=== PATIENT | female | born 1955 | race Caucasian/White ===

== ENCOUNTER 2023-07-02 19:55 | Emergency (ER) | payer OTHER ==
--- OUTSIDE RECORDS SUMMARY | 2023-07-02 19:59 | XMS REPORT | Continuity of Care Document ---
Author Name Unknown Address [address] [place] [address] [facility] Address [address] [place] [address] Care Team Providers Care Systems Software Manager Name Role Phone Pcp, Patient Does Not Have A Primary Care Physic pina JASPREET BENSON Attending Clinician Jaspreet La MD Attending Clinician [phone] CJ ALDANA Attending Clinician Unavailable Cj Ko Attending Clinician [phone] Doctor Unassigned, [place] Attending Clinician U navailable Only, [facility] Test Attending Clinician Unavailable Pob, [facility] Main Attending Clinician Gale Modi PT Attending Clinician Un available Park BRAND, Erica K.HJohn Attending Clinician [phone] ERICA NICKHJohn Attending Clinician UnavailJASPREET Melchor Admitting Clinician Jaspreet La MD Admitting Clinician [phone] Payers Payer Name Policy Type Policy Number Effective Date Expirati on Date Source GVISP 1 [id number] 2020 00:00:00 [employer] [facility] [id number] 2020 00:00:00 MEDICARE PART A \\T\\ B [id number] 2020 00:00:00 Problems Condition Name Condition Details Condition Category Status Onset Date Resolution Date Last Treatment Date Treating Clinician Comments Source Primary osteoarthr itis of right knee Primary osteoarthr itis of right knee Disease Active 11-01 00:00: 00 Overview: Formattin g of this note might be different from the original. Added automatic ally from request for surgery [id number] [facility] No known active problems No known active problems Disease [facility] Allergies, Adverse Reactions, Alerts Allergy Name Allergy Type Status Severity Reaction(s) Onset Date Inactive Date Treating Clinician Comments Source NO KNOWN ALLERGIE S Drug Class Active [facility] Social History Social Habit Start Date Stop Date Quantity Comments Source History SDOH Alcohol Std Drinks [facility] History SDOH Alcohol Binge [facility] Exposure to SARS-CoV-2 (event) Not sure [facility] Alcohol intake 2020-12-24 00:00:00 2020-12-24 00:00:00 Current drinker of alcohol (finding) [facility] Cigarettes smoked current (pack per day) - Reported 2020-09-27 00:00:00 2020-09-27 00:00:00 [facility] Tobacco use and exposure 2020-09-27 00:00:00 2020-09-27 00:00:00 Current user [facility] Alcohol Comment 2020-09-27 00:00:00 2020-09-27 00:00:00 occacional [facility] History SDOH Alcohol Frequency 2020-09-02 00:00:00 2020-09-02 00:00:00 1 [facility] Sex Assigned At 1955 00:00:00 1955 00:00:00 [facility] Smoking Status Start Date Stop Date Source Current every day smoker 2020-09-27 00:00:00 [facility] Never smoker [facility] Medications Ordered Medication Name Filled Medication Name Start Date Stop Date Current Medication? Ordering Clinician Indication Dosage Frequency Signature (SIG) Comments Components Source acetaminoph en-codeine (TYLENOL-CO DEINE #3) 300-30 mg tablet 11-19 00:00: 00 Yes 4647 2{tbl} Take 2 tablets by mouth every 4 (four) hours as needed for Pain (scale 4-6) or Pain (scale 7-10). Indication s: acute pain [facility] acetaminoph en-codeine (TYLENOL-CO DEINE #3) 300-30 mg tablet 11-19 00:00: 00 Yes 4647 2{tbl} Take 2 tablets by mouth every 4 (four) hours as needed for Pain (scale 4-6) or Pain (scale 7-10). Indication s: acute pain [facility] acetaminoph en-codeine (TYLENOL-CO DEINE #3) 300-30 mg tablet 11-19 00:00: 00 Yes 4647 2{tbl} Take 2 tablets by mouth every 4 (four) hours as needed for Pain (scale 4-6) or Pain (scale 7-10). Indication s: acute pain [facility] acetaminoph en-codeine (TYLENOL-CO DEINE #3) 300-30 mg tablet 11-19 00:00: 00 Yes 4647 2{tbl} Take 2 tablets by mouth every 4 (four) hours as needed for Pain (scale 4-6) or Pain (scale 7-10). Indication s: acute pain [facility] acetaminoph en-codeine (TYLENOL-CO DEINE #3) 300-30 mg tablet 11-19 00:00: 00 Yes 4647 2{tbl} Take 2 tablets by mouth every 4 (four) hours as needed for Pain (scale 4-6) or Pain (scale 7-10). Indication s: acute pain [facility] acetaminoph en-codeine (TYLENOL-CO DEINE #3) 300-30 mg tablet 11-19 00:00: 00 Yes 4647 2{tbl} Take 2 tablets by mouth every 4 (four) hours as needed for Pain (scale 4-6) or Pain (scale 7-10). Indication s: acute pain [facility] acetaminoph en-codeine (TYLENOL-CO DEINE #3) 300-30 mg tablet 11-19 00:00: 00 Yes 4647 2{tbl} Take 2 tablets by mouth every 4 (four) hours as needed for Pain (scale 4-6) or Pain (scale 7-10). Indication s: acute pain [facility] acetaminoph en-codeine (TYLENOL-CO DEINE #3) 300-30 mg tablet 11-19 00:00: 00 Yes 4647 2{tbl} Take 2 tablets by mouth every 4 (four) hours as needed for Pain (scale 4-6) or Pain (scale 7-10). Indication s: acute pain [facility] aspirin 81 mg chewable tablet 0 11-10 01:07: 32 Yes 81mg Take 81 mg by mouth daily. [facility] aspirin 81 mg chewable tablet 0 11-10 01:07: 32 Yes 81mg Take 81 mg by mouth daily. [facility] aspirin 81 mg chewable tablet 11-10 01:07: 32 Yes 81mg Take 81 mg by mouth daily. [facility] aspirin 81 mg chewable tablet 0 11-10 01:07: 32 Yes 81mg Take 81 mg by mouth daily. [facility] aspirin 81 mg chewable tablet 11-10 01:07: 32 Yes 81mg Take 81 mg by mouth daily. [facility] aspirin 81 mg chewable tablet 0 11-10 01:07: 32 Yes 81mg Take 81 mg by mouth daily. [facility] aspirin 81 mg chewable tablet 11-10 01:07: 32 Yes 81mg Take 81 mg by mouth daily. [facility] aspirin 81 mg chewable tablet 0 11-10 01:07: 32 Yes 81mg Take 81 mg by mouth daily. [facility] aspirin 81 mg chewable tablet 0 11-10 01:07: 32 Yes 81mg Take 81 mg by mouth daily. [facility] aspirin 81 mg chewable tablet 0 11-10 01:07: 32 Yes 81mg Take 81 mg by mouth daily. [facility] aspirin 81 mg chewable tablet 0 11-10 01:07: 32 Yes 81mg Take 81 mg by mouth daily. [facility] aspirin 81 mg chewable tablet 0 11-09 20:07: 32 Yes 81mg Take 81 mg by mouth daily. [facility] aspirin 81 mg chewable tablet 11-09 20:07: 32 Yes 81mg Take 81 mg by mouth daily. [facility] aspirin 81 mg chewable tablet 11-09 20:07: 32 Yes 81mg Take 81 mg by mouth daily. [facility] HYDROcodone -acetaminop hen (NORCO 5) 5-325 mg tablet 1 tablet 11-09 15:04: 04 Yes 1{tbl} 1 tablet, Oral, Q6HPRN, Starting Sun11/09/20 at 1004, Until Discontinu ed, Routine, Pain (scale 7-10), breakthrou gh pain [facility] HYDROcodone -acetaminop hen (NORCO 5) 5-325 mg tablet 1 tablet 11-09 15:04: 04 Yes 1{tbl} 1 tablet, Oral, Q6HPRN, Starting Sun11/09/20 at 1004, Until Discontinu ed, Routine, Pain (scale 7-10), breakthrou gh pain [facility] enoxaparin (LOVENOX) injection 30 mg 11-09 15:00: 00 12-07 12:59 :00 No 30mg 30 mg, Subcutaneo us, Q12H, 56 doses, First dose on Sun11/09/20 at 1000, Last dose on Sun12/06/20 at 1999, Routine [facility] enoxaparin (LOVENOX) injection 30 mg 11-09 15:00: 00 12-07 12:59 :00 No 30mg 30 mg, Subcutaneo us, Q12H, 56 doses, First dose on Sun11/09/20 at 1000, Last dose on Sun12/06/20 at 1999, Routine [facility] ondansetron (ZOFRAN (PF)) injection 4 mg 11-09 02:45: 00 11-09 02:22 :00 No 4mg 4 mg, Slow IV Push, ONCE, 1 dose, Sun11/08/20 at 2145, Routine [facility] ondansetron (ZOFRAN (PF)) injection 4 mg 11-09 02:45: 00 11-09 02:22 :00 No 4mg 4 mg, Slow IV Push, ONCE, 1 dose, Sun11/08/20 at 2145, Routine [facility] docusate (COLACE) capsule 100 mg 11-09 01:00: 00 Yes 100mg 100 mg, Oral, Q12H, First dose on Sun11/08/20 at 1999, Until Discontinu ed, Routine [facility] docusate (COLACE) capsule 100 mg 11-09 01:00: 00 Yes 100mg 100 mg, Oral, Q12H, First dose on Sun11/08/20 at 1999, Until Discontinu ed, Routine [facility] ceFAZolin in dextrose (iso-os) (ANCEF) 2 gram/100 mL Piggyback 2 g 11-09 00:15: 00 11-09 09:03 :00 No 2000mg 2 g (2,000 mg), IV Piggyback, Q8H ABX, 2 doses, First dose on Sun11/08/20 at 191, Last dose on Sun11/09/20 at 031, 100 mL
Reas on for Anti-Infec tive: Surgical Prophylaxi s
Surgi perla Prophylaxi s: Orthopaedi c
Durat ion of therapy: within 24 hours of surgery [facility] ceFAZolin in dextrose (iso-os) (ANCEF) 2 gram/100 mL Piggyback 2 g 11-09 00:15: 00 11-09 09:03 :00 No 2000mg 2 g (2,000 mg), IV Piggyback, Q8H ABX, 2 doses, First dose on Sun11/08/20 at 1915, Last dose on Sun11/09/20 at 0315, 100 mL
Reas on for Anti-Infec tive: Surgical Prophylaxi s
Surgi perla Prophylaxi s: Orthopaedi c
Durat ion of therapy: within 24 hours of surgery [facility] rivaroxaban (XARELTO) tablet 0 8-03 00:00: 00 Yes 1481 Take 10 mg po qd x 10 days Indication s: deep vein thrombosis prevention in knee replacemen t [facility] rivaroxaban (XARELTO) tablet 8-03 00:00: 00 Yes 1481 Take 10 mg po qd x 10 days Indication s: deep vein thrombosis prevention in knee replacemen t [facility] rivaroxaban (XARELTO) tablet 8-03 00:00: 00 Yes 1481 Take 10 mg po qd x 10 days Indication s: deep vein thrombosis prevention in knee replacemen t [facility] rivaroxaban (XARELTO) tablet 8-03 00:00: 00 Yes 1481 Take 10 mg po qd x 10 days Indication s: deep vein thrombosis prevention in knee replacemen t [facility] rivaroxaban (XARELTO) tablet 8-03 00:00: 00 Yes 1481 Take 10 mg po qd x 10 days Indication s: deep vein thrombosis prevention in knee replacemen t [facility] rivaroxaban (XARELTO) tablet 8-03 00:00: 00 Yes 1481 Take 10 mg po qd x 10 days Indication s: deep vein thrombosis prevention in knee replacemen t [facility] rivaroxaban (XARELTO) tablet 0 8-03 00:00: 00 Yes 1481 Take 10 mg po qd x 10 days Indication s: deep vein thrombosis prevention in knee replacemen t [facility] rivaroxaban (XARELTO) tablet 8-03 00:00: 00 Yes 1481 Take 10 mg po qd x 10 days Indication s: deep vein thrombosis prevention in knee replacemen t [facility] rivaroxaban (XARELTO) tablet 8-03 00:00: 00 Yes 1481 Take 10 mg po qd x 10 days Indication s: deep vein thrombosis prevention in knee replacemen t [facility] rivaroxaban (XARELTO) tablet 8-03 00:00: 00 Yes 1481 Take 10 mg po qd x 10 days Indication s: deep vein thrombosis prevention in knee replacemen t [facility] rivaroxaban (XARELTO) tablet 8 00:00: 00 Yes 1481 Take 10 mg po qd x 10 days Indication s: deep vein thrombosis prevention in knee replacemen t [facility] rivaroxaban (XARELTO) tablet 8 00:00: 00 Yes 1481 Take 10 mg po qd x 10 days Indication s: deep vein thrombosis prevention in knee replacemen t [facility] rivaroxaban (XARELTO) tablet 8 00:00: 00 Yes 1481 Take 10 mg po qd x 10 days Indication s: deep vein thrombosis prevention in knee replacemen t [facility] rivaroxaban (XARELTO) tablet 8 00:00: 00 Yes 1481 Take 10 mg po qd x 10 days Indication s: deep vein thrombosis prevention in knee replacemen t [facility] HYDROcodone -acetaminop hen 5-325 mg tablet 11-09 00:00: 00 11-17 04:59 :00 No 4647 1{tbl} Take 1 tablet by mouth every 6 (six) hours as needed for Pain (scale 7-10) (breakthro ugh pain) for up to 7 days. Indication s: acute pain [facility] HYDROcodone -acetaminop hen 5-325 mg tablet 11-09 00:00: 00 11-17 04:59 :00 No 4647 1{tbl} Take 1 tablet by mouth every 6 (six) hours as needed for Pain (scale 7-10) (breakthro ugh pain) for up to 7 days. Indication s: acute pain [facility] HYDROcodone -acetaminop hen 5-325 mg tablet 11-09 00:00: 00 11-17 04:59 :00 No 4647 1{tbl} Take 1 tablet by mouth every 6 (six) hours as needed for Pain (scale 7-10) (breakthro ugh pain) for up to 7 days. Indication s: acute pain [facility] HYDROcodone -acetaminop hen 5-325 mg tablet 11-09 00:00: 00 11-17 04:59 :00 No 4647 1{tbl} Take 1 tablet by mouth every 6 (six) hours as needed for Pain (scale 7-10) (breakthro ugh pain) for up to 7 days. Indication s: acute pain [facility] aspirin 81 mg chewable tablet 11-08 23:29: 04 Yes 81mg Take 81 mg by mouth daily. [facility] morpHINE 30 mg/30 mL (fixed dose) [employer] TRA[employer] injection 11-08 20:44: 45 Yes [facility] morpHINE 30 mg/30 mL (fixed dose) [employer] TRA[employer] injection 11-08 20:44: 45 Yes [facility] naloxone (NARCAN) injection 0.1 mg 11-08 19:44: 41 Yes .1mg 0.1 mg, Slow IV Push, SEE-INSTRU CTIONS, Starting Sun11/08/20 at 1444, Until Discontinu ed, Routine [facility] naloxone (NARCAN) injection 0.1 mg 11-08 19:44: 41 Yes .1mg 0.1 mg, Slow IV Push, SEE-INSTRU CTIONS, Starting Sun11/08/20 at 1444, Until Discontinu ed, Routine [facility] lactated ringers IV infusion 1,000 mL 11-08 18:30: 00 Yes 1000mL at 75 mL/hr, 1,000 mL, IV Infusion, CONTINUOUS , Starting Sun11/08/20 at 1330, Until Discontinu ed, Routine, PACU [facility] lactated ringers IV infusion 1,000 mL 11-08 18:30: 00 Yes 1000mL at 75 mL/hr, 1,000 mL, IV Infusion, CONTINUOUS , Starting Sun11/08/20 at 1330, Until Discontinu ed, Routine, PACU [facility] FENTanyl PF (SUBLIMAZE (PF)) injection 25 mcg 11-08 18:25: 16 11-08 18:48 :00 No 25ug 25 mcg, Slow IV Push, Q5MIN PRN, 4 doses, Starting Sun11/08/20 at 1325, Until Discontinu ed, Routine, Pain (scale 4-6), PACU [facility] FENTanyl PF (SUBLIMAZE (PF)) injection 25 mcg 11-08 18:25: 16 11-08 18:48 :00 No 25ug 25 mcg, Slow IV Push, Q5MIN PRN, 4 doses, Starting Sun11/08/20 at 1325, Until Discontinu ed, Routine, Pain (scale 4-6), PACU [facility] sodium chloride 0.9 % irrigation solution 11-08 16:14: 00 11-08 21:24 :10 No PRN, Starting Sun11/08/20 at 1114, Until Sun11/08/20 at 1624, Intra-op [facility] oxyCODONE-a cetaminophe n (PERCOCET) 5-325 mg per tablet 2 tablet 11-08 13:45: 00 11-08 13:52 :00 No 2{tbl} 2 tablet, Oral, ONCE, 1 dose, Sun11/08/20 at 0845, Routine, DSU Pre-op [facility] gabapentin (NEURONTIN) capsule 300 mg 11-08 13:45: 00 11-08 13:52 :00 No 300mg 300 mg, Oral, ONCE, 1 dose, Sun11/08/20 at 0845, Routine, DSU Pre-op [facility] celecoxib (CELEBREX) capsule 400 mg 11-08 13:45: 00 11-08 13:53 :00 No 400mg 400 mg, Oral, ONCE, 1 dose, Sun11/08/20 at 0845, Routine, DSU Pre-op [facility] lactated ringers IV infusion 1,000 mL 11-08 13:45: 00 11-08 13:53 :00 No 1000mL at 42 mL/hr, 1,000 mL, IV Infusion, ONCE, 1 dose, Sun11/08/20 at 0845, Routine, DSU Pre-op [facility] oxyCODONE-a cetaminophe n (PERCOCET) 5-325 mg per tablet 2 tablet 11-08 13:45: 00 11-08 13:52 :00 No 2{tbl} 2 tablet, Oral, ONCE, 1 dose, Sun11/08/20 at 0845, Routine, DSU Pre-op [facility] gabapentin (NEURONTIN) capsule 300 mg 11-08 13:45: 00 11-08 13:52 :00 No 300mg 300 mg, Oral, ONCE, 1 dose, Sun11/08/20 at 0845, Routine, DSU Pre-op [facility] celecoxib (CELEBREX) capsule 400 mg 11-08 13:45: 00 11-08 13:53 :00 No 400mg 400 mg, Oral, ONCE, 1 dose, Sun11/08/20 at 0845, Routine, DSU Pre-op [facility] lactated ringers IV infusion 1,000 mL 11-08 13:45: 00 11-08 13:53 :00 No 1000mL at 42 mL/hr, 1,000 mL, IV Infusion, ONCE, 1 dose, Sun11/08/20 at 0845, Routine, DSU Pre-op [facility] aspirin 81 mg chewable tablet 11-04 17:24: 33 Yes 81mg Take 81 mg by mouth daily. [facility] aspirin 81 mg chewable tablet 11-04 17:24: 33 Yes 81mg Take 81 mg by mouth daily. [facility] aspirin 81 mg chewable tablet 11-04 17:24: 33 Yes 81mg Take 81 mg by mouth daily. [facility] aspirin 81 mg chewable tablet 11-04 17:24: 33 Yes 81mg Take 81 mg by mouth daily. [facility] aspirin 81 mg chewable tablet 11-04 17:24: 33 Yes 81mg Take 81 mg by mouth daily. [facility] No known medications No [facility] No known medications No [facility] No known medications No [facility] No known medications No Un v[facility] No known medications No Un [facility] No known medications No [facility] No known medications No [facility] No known medications No [facility] No known medications No Un [facility] No known medications No [facility] No known medications No [facility] No known medications No Un v[facility] No known medications No Un v[facility] Vital Signs Vital Name Observation Time Observation Value Comments S ource Systolic blood pressure 2020-12-24 15:02:00 141 mm[Hg] [facility] Diastolic blood pressure 2020-12-24 15:02:00 89 mm[Hg] [facility] Heart rate 2020-12-24 15:02:00 85 /min [facility] Body height 2020-12-24 15:02:00 170.2 cm [facility] Body weight 2020-12-24 15:02:00 102.059 kg [facility] BMI 2020-12-24 15:02:00 35.24 kg/m2 [facility] Systolic blood pressure 2020-11-19 15:47:00 136 mm[Hg] [facility] Diastolic blood pressure 2020-11-19 15:47:00 77 mm[Hg] [facility] Heart rate 2020-11-19 15:47:00 96 /min [facility] Respiratory rate 2020-11-19 15:47:00 18 /min [facility] Body height 2020-11-19 15:47:00 170.2 cm [facility] Body weight 2020-11-19 15:47:00 102.059 kg [facility] BMI 2020-11-19 15:47:00 35.24 kg/m2 [facility] Systolic blood pressure 2020-11-09 20:15:00 120 mm[Hg] [facility] Diastolic blood pressure 2020-11-09 20:15:00 74 mm[Hg] [facility] Heart rate 2020-11-09 20:15:00 75 /min [facility] Body temperature 2020-11-09 20:15:00 36.56 Yu [facility] Respiratory rate 2020-11-09 20:15:00 16 /min [facility] Oxygen saturation in Arterial blood by Pulse oximetry 2020-11-09 20:15:00 91 /min [facility] Body weight 2020-11-09 08:28:00 102.241 kg [facility] BMI 2020-11-09 08:28:00 35.30 kg/m2 [facility] Body height 2020-11-09 02:26:00 170.2 cm [facility] Systolic blood pressure 2020-11-08 13:35:00 138 mm[Hg] [facility] Diastolic blood pressure 2020-11-08 13:35:00 87 mm[Hg] [facility] Heart rate 2020-11-08 13:35:00 98 /min [facility] Body temperature 2020-11-08 13:35:00 37.22 Yu [facility] Respiratory rate 2020-11-08 13:35:00 18 /min [facility] Oxygen saturation in Arterial blood by Pulse oximetry 2020-11-08 13:35:00 97 /min [facility] Body height 2020-11-05 16:06:00 170.2 cm [facility] Body weight 2020-11-05 16:06:00 95.3 kg [facility] BMI 2020-11-05 16:06:00 35.30 kg/m2 [facility] Systolic blood pressure 2020-10-28 14:34:00 127 mm[Hg] [facility] Diastolic blood pressure 2020-10-28 14:34:00 82 mm[Hg] [facility] Heart rate 2020-10-28 14:34:00 98 /min [facility] Body weight 2020-10-28 14:34:00 95.255 kg [facility] BMI 2020-10-28 14:34:00 32.89 kg/m2 [facility] Systolic blood pressure 2020-09-27 19:03:00 130 mm[Hg] [facility] Diastolic blood pressure 2020-09-27 19:03:00 86 mm[Hg] [facility] Heart rate 2020-09-27 19:03:00 103 /min [facility] Respiratory rate 2020-09-27 18:54:00 20 /min [facility] Body height 2020-09-27 18:54:00 170.2 cm [facility] Body weight 2020-09-27 18:54:00 97.523 kg [facility] BMI 2020-09-27 18:54:00 33.67 kg/m2 [facility] Oxygen saturation in Arterial blood by Pulse oximetry 2020-09-27 18:54:00 94 /min [facility] Systolic blood pressure 2020-09-02 14:59:00 142 mm[Hg] [facility] Diastolic blood pressure 2020-09-02 14:59:00 85 mm[Hg] [facility] Heart rate 2020-09-02 14:59:00 85 /min [facility] Body height 2020-09-02 14:58:00 172.7 cm [facility] Body weight 2020-09-02 14:58:00 99.791 kg [facility] BMI 2020-09-02 14:58:00 33.45 kg/m2 [facility] Procedures Procedure Date / Time Performed Performing Clinician Source XR KNEE 3 VW RIGHT 2020-11-19 15:27:00 Cj Aldana [facility] REFERRAL- REQUEST/RESPONSE 2020-11-15 05:01:00 Doctor Unassigned, [place] [facility] BASIC METABOLIC PANEL (NA, K, CL, CO2, GLUCOSE, BUN, CREATININE, CA) 2020-11-09 08:57:00 Jaspreet Benson [facility] CBC WITH DIFF 2020-11-09 08:57:00 [facility] (NA, K, CL, CO2, GLUCOSE, BUN, CREATININE, CA) 2020-11-09 08:57:00 Jaspreet Benson [facility] CBC WITH DIFF 2020-11-09 08:57:00 [facility] KNEE <3 VW RIGHT 2020-11-08 20:49:32 Sony Benson [facility] XR KNEE <3 VW RIGHT 2020-11-08 20:49:32 Sony Benson [facility] TOTAL KNEE ARTHROPLASTY 2020-11-08 15:50:00 Jaspreet Benson [facility] TOTAL KNEE ARTHROPLASTY 2020-11-08 15:50:00 Jaspreet Benson [facility] DAY SURGERY - ADC 2020-11-08 05:01:00 Doctor Abeba ssigned, [place] [facility] CBC WITH DIFF 2020-11-05 16:49:00 [facility] BASIC METABOLIC PANEL (NA, K, CL, CO2, GLUCOSE, BUN, CREATININE, CA) 2020-11-05 16:49:00 Jaspreet Benson [facility] ABORH CONFIRMATION (LAB ONLY) 2020-11-05 16:46:00 Jaspreet Benson [facility] HB ABO GROUPING 2020-11-05 16:34:00 Jaspreet Benson [facility] XR CHEST 2 VW 2020-11-05 16:23:48 [facility]asp[facility]/REFUSAL FOR DIAGNOSIS AND TREATMENT 2020-11-05 15:52:25 Doctor Unassigned, [place] [facility] CONSENT/REFUSAL FOR DIAGNOSIS AND TREATMENT 2020-11-05 15:52:25 Doctor Unassigned, [place] [facility] ASSIGNMENT OF BENEFITS 2020-11-05 15:52:12 Docto r Unassigned, [place] [facility] [facility] ASSIGNMENT OF BENEFITS 2020-11-05 15:52:12 Docto r Unassigned, [place] [facility] NOTICE OF PRIVACY PRACTICES 2020-11-05 15:51:55 Doctor Unassigned, [place] [facility] NOTICE OF PRIVACY PRACTICES 2020-11-05 15:51:55 Doctor Unassigned, [place] [facility] CONSENT/REFUSAL FOR DIAGNOSIS AND TREATMENT 2020-11-05 15:51:40 Doctor Unassigned, [place] [facility] CONSENT/REFUSAL FOR DIAGNOSIS AND TREATMENT 2020-11-05 15:51:40 Doctor Unassigned, [place] [facility] ASSIGNMENT OF BENEFITS 2020-11-05 15:51:22 Docto r Unassigned, [place] [facility] ASSIGNMENT OF BENEFITS 2020-11-05 15:51:22 Docto r Unassigned, [place] [facility] DSU PRE-OP 2020-10-28 05:01:00 Doctor Unass igned, [place] [facility] DSU PRE-OP 2020-10-28 05:01:00 Doctor Unass igned, [place] [facility] NOTICE OF BILLING PRACTICES FOR MEDICARE PATIENTS 2020-10-05 19:24:08 Doctor Unassigned, [place] [facility] AK ELECTROCARDIOGRAM, COMPLETE 2020-09-27 19:15:42 Erica Nick [facility] XR KNEE <3 VW RIGHT 2020-09-02 15:19:09 Sony Benson [facility] Encounters Start Date/Time End Date/Time Encounter Type Admission Type Attending [facility] Care Department Encounter ID Source 2021-02-07 11:15:54 Inpatient R JASPREET BENSON [facility] [id number] [facility] 2021-07-07 00:00:00 2021-07-07 00:00:00 Telephone Jaspreet Benson [facility] 1.2.840.114 350.1.13.10 4.2.7.2.686 [id number] [facility] 2020-12-24 11:00:00 2020-12-24 11:00:00 Outpatient CJ CONWAY [facility] [id number] [facility] 2020-12-24 09:52:09 2020-12-24 10:33:15 Office Visit Jaspreet Benson [facility] Justice?[facility] 1.2.114 350.1.13.10 4.2.7.2.686 [id number] [facility] 2020-11-19 10:10:36 2020-11-19 23:59:00 Hospital Encounter Cj Aldana [facility] 1.2840.114 350.1.13.10 4.2.7.2.686 [id number] [facility] 2020-11-19 10:44:51 2020-11-19 11:31:36 Office Visit Cj Aldana [facility]aspreet Benson [facility] 1.2.114 350.1.13.10 4.2.7.2.686 [id number] [facility] 2020-11-19 10:45:00 2020-11-19 10:45:00 Outpatient R JASPREET BENSON [facility] [id number] [facility] 2020-11-18 00:00:00 2020-11-18 00:00:00 [facility] 1.2114 350.1.13.10 4.2.7.2.686 [id number] [facility] 2020-11-15 00:00:00 2020-11-15 00:00:00 Orders Only Doctor Unassigned, [place] [facility] 1.2.114 350.1.13.10 4.2.7.2.686 [id number] [facility] 2020-11-11 00:00:00 2020-11-11 00:00:00 Telephone [facility] 1.2.114 350.1.13.10 4.2.7.2.686 [id number] [facility] 2020-11-11 00:00:00 2020-11-11 00:00:00 Telephone Jaspreet [facility] 1.2.840.114 350.1.13.10 4.2.7.2.686 [id number] [facility] 2020-11-08 08:20:00 2020-11-09 20:07:00 Hospital Encounter Jaspreet Benson [facility] 1.2.840.114 350.1.13.10 4.2.7.2.686 [id number] [facility] 2020-11-08 10:30:00 2020-11-08 12:38:00 Surgery Jaspreet Benson [facility] 1.2.840.114 350.1.13.10 4.2.7.2.686 [id number] [facility] 2020-11-08 00:00:00 2020-11-08 00:00:00 Orders Only Doctor Unassigned, [place] [facility] 1.2.840.114 350.1.13.10 4.2.7.2.686 [id number] [facility] 2020-11-05 10:45:00 2020-11-05 23:59:00 Hospital Encounter Jaspreet Benson [facility] 1.2.840.114 350.1.13.10 4.2.7.2.686 [id number] [facility] 2020-11-05 10:59:32 2020-11-05 11:14:32 Laboratory Only Only, Adc Test Jaspreet Benson [facility] 1.2.840.114 350.1.13.10 4.2.7.2.686 [id number] [facility] 2020-11-05 10:58:40 2020-11-05 11:13:40 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 1..840.114 350.1.13.10 4.2.7.2.686 [id number] [facility] 2020-11-04 13:00:00 2020-11-04 13:00:00 Outpatient R BENSONJAMIEIG [facility] [id number] [facility] 2020-10-29 00:00:00 2020-10-29 00:00:00 Prep For Surgery Marcelino Jaspreet [facility] [place] 1..840.114 350.1.13.10 4.2.7.2.686 [id number] [facility] 2020-10-28 10:00:00 2020-10-28 10:00:00 Outpatient CJ CONWAY [facility] [id number] [facility] 2020-10-28 09:26:40 2020-10-28 09:41:40 Office Visit Cj Aldana [facility] [place] 1..840.114 350.1.13.10 4.2.7.2.686 [id number] [facility] 2020-10-08 00:00:00 2020-10-08 00:00:00 Telephone Erica Nick [facility] 1.2.840.114 350.1.13.10 4.2.7.2.686 [id number] [facility] 2020-10-05 15:00:00 2020-10-05 15:00:00 Outpatient R PARK ERICA [facility] [id number] [facility] 2020-10-05 00:00:00 2020-10-05 00:00:00 Orders Only Doctor Unassigned, [place] [facility] 1.2840.114 350.1.13.10 4.2.7.2.686 [id number] [facility] 2020-09-27 13:44:59 2020-09-27 14:33:21 Office Visit Erica Nick [facility] 1.2.840.114 350.1.13.10 4.2.7.2.686 [id number] [facility] 2020-09-27 14:00:00 2020-09-27 14:00:00 Outpatient R PARK ERICA [facility] [id number] [facility] 2020-09-02 10:19:08 2020-09-02 23:59:00 Hospital Encounter Jaspreet [facility] mika [place] 1.2840.114 350.1.13.10 4.2.7.2.686 [id number] [facility] 2020-09-02 10:19:08 2020-09-02 23:59:00 Outpatient R JASPREET BENSON [facility] [id number] [facility] 2020-09-02 09:45:13 2020-09-02 10:31:39 Office Visit Jaspreet [facility] 1.2840.114 350.1.13.10 4.2.7.2.686 [id number] [facility] Results Test Description Test Time Test Comments Results Result Comments Source XR KNEE 3 VW RIGHT 16:56:44 Impression: Status post right knee arthroplasty. No evidence of periprosthetic fractureor dislocation. RL: 781 History: Status post right total knee replacement. Exam: XR KNEE 3 VW RIGHT Date: 11/19/2020 10:10 AM Ordering provider: CJ ALDANA Technical quality: Adequate Comparison: None available. Findings: Frontal and lateral views of the right knee are obtained. Thehardware is intact and in position. Soft tissue swelling and fluid and skinstaples are consistent with recent surgery. No evidence of periprostheticfracture or dislocation. [facility], Radiant Results Inft User - 11/19/2020 11:57 AM CDT History: Status post right total knee replacement.Exam: XR KNEE 3 VW RIGHTDate: 11/19/2020 10:10 AMOrdering provider: CJ ALDANATechnical quality: AdequateComparison: None available.Findings: Frontal and lateral views of the right knee are obtained. Thehardware is intact and in position. Soft tissue swelling and fluid and skinstaples are consistent with recent surgery. No evidence of periprostheticfracture or dislocation.IMPRESSIONImpr ession:Status post right knee arthroplasty. No evidence of periprosthetic fractureor dislocation.RL: 781 [facility] (NA, K, CL, CO2, GLUCOSE, BUN, CREATININE, CA)2020-11-09 10:47:41* Test Item Value Reference Range Interpretation Comme nts NA (test code = 5941586257) 138 mmol/L 135-145 K (test code = 8754838444) 4.0 mmol/L 3.5-5.0 CL (test code = 3540430085) 104 mmol/L 98-108 CO2 TOTAL (test code = 4233513007) 26 mmol/L 23-31 AGAP (test code = 8860084772) 2-16 BUN (test code = 9575803202) 11 mg/dL 7-23 GLUCOSE (test code = 4797903098) 130 mg/dL 70-110 H CREATININE (test code = 6065721285) 0.54 mg/dL 0.50-1.04 CALCIUM (test code = 8238072964) 8.6 mg/dL 8.6-10.6 eGFR (test code = 6528223806) mL/min/1.73m2 DENNYS (test code = DENNYS) Association of Glomerular Filtration Rate (GFR) and Staging of Kidney Disease* + --+ --+ ------+| GFR (mL/min/1.73 m2) ?| With Kidney Damage ?| ?Without Kidney Damage+ --------+ --------+ +| ?>90 ?| ?Stage one ?| ? Normal ?+ ---+ ---+ -------+| ?60-89 ?| ?Stage two ?| ? Decreased GFR ? + --+ --+ ------+| ?30-59 ?| ?Stage three ?| ? Stage three ? + --+ --+ ------+| ?15-29 ?| ?Stage four ? | ? Stage four ?+ ---+ ---+ -------+| ?<15 (or dialysis) ? ?| ?Stage five ? | ? Stage five ?+ ---+ ---+ -------+ *Each stage assumes the associated GFR level has been in effect for at least three months. ?Stages 1 to 5, with or without kidney disease, indicate chronic kidney disease. Notes: Determination of stages one and two (with eGFR >59mL/min/1.73 m2) requires estimation of kidney damage for at least three months as defined by structural or functional abnormalities of the kidney, manifested by either:Pathological abnormalities or Markers of kidney damage (including abnormalities in the composition of the blood or urine or abnormalities in imaging tests). Lab Interpretation (test code = 98533-4) Abnormal [facility] with Zekfptlykedq8181-26-91 10:11:14* Test Item Value Reference Range Interpretation Comme nts WBC (test code = 6690-2) See_Comment H [Automated Minutta] The system which generated this result transmitted reference range: 4.30 - 11.10 10*3/?L. The reference range was not used to interpret this result as normal/abnormal. RBC (test code = 789-8) See_Comment L [Automated messa ge] The system which generated this result transmitted reference range: 3.93 - 5.25 10*6/?L. The reference range was not used to interpret this result as normal/abnormal. HGB (test code = 718-7) 12.3 g/dL 11.6-15.0 HCT (test code = 4544-3) 36.9 % 35.7-45.2 MCV (test code = 787-2) 111.8 fL 80.6-95.5 H MCH (test code = 785-6) 37.3 pg 25.9-32.8 H MCHC (test code = 786-4) 33.3 g/dL 31.6-35.1 RDW-SD (test code = 14185-2) 49.6 fL 39.0-49.9 RDW-CV (test code = 788-0) 11.9 % 12.0-15.5 L PLT (test code = 777-3) See_Comment [Automated messa ge] The system which generated this result transmitted reference range: 166 - 358 10*3/?L. The reference range was not used to interpret this result as normal/abnormal. MPV (test code = 31564-5) 10.3 fL 9.5-12.9 NRBC/100 WBC (test code = 6319123534) See_Comment [Automated [employer] ssage] The system which generated this result transmitted reference range: 0.0 - 10.0 /100 WBCs. The reference range was not used to interpret this result as normal/abnormal. NRBC x10^3 (test code = 6979287095) <0.01 See_Comment [Automated messa ge] The system which generated this result transmitted reference range: 10*3/?L. The reference range was not used to interpret this result as normal/abnormal. GRAN MAT (NEUT) % (test code = 770-8) 77.3 % IMM GRAN % (test code = 1889183410) 0.60 % LYMPH % (test code = 736-9) 10.4 % MONO % (test code = 5905-5) 11.6 % EOS % (test code = 713-8) 0.0 % BASO % (test code = 706-2) 0.1 % GRAN MAT x10^3(ANC) (test code = 6541321140) 9.74 10*3/uL 1.88-7.09 H IMM GRAN x10^3 (test code = 9704550692) 0.07 10*3/uL 0.00-0.06 H LYMPH x10^3 (test code = 731-0) 1.31 10*3/uL 1.32-3.29 L MONO x10^3 (test code = 742-7) 1.46 10*3/uL 0.33-0.92 H EOS x10^3 (test code = 711-2) <0.03 0.03-0.39 L BASO x10^3 (test code = 704-7) <0.03 0.01-0.07 Lab Interpretation (test code = 27418-2) Abnormal [facility] with Olwdfljturuv0636-98-07 10:11:14* Test Item Value Reference Range Interpretation Comme nts WBC (test code = 6690-2) See_Comment H [Automated messa ge] The system which generated this result transmitted reference range: 4.30 - 11.10 10*3/?L. The reference range was not used to interpret this result as normal/abnormal. RBC (test code = 789-8) See_Comment L [Automated messa ge] The system which generated this result transmitted reference range: 3.93 - 5.25 10*6/?L. The reference range was not used to interpret this result as normal/abnormal. HGB (test code = 718-7) 12.3 g/dL 11.6-15.0 HCT (test code = 4544-3) 36.9 % 35.7-45.2 MCV (test code = 787-2) 111.8 fL 80.6-95.5 H MCH (test code = 785-6) 37.3 pg 25.9-32.8 H MCHC (test code = 786-4) 33.3 g/dL 31.6-35.1 RDW-SD (test code = 05523-7) 49.6 fL 39.0-49.9 RDW-CV (test code = 788-0) 11.9 % 12.0-15.5 L PLT (test code = 777-3) See_Comment [Automated messa ge] The system which generated this result transmitted reference range: 166 - 358 10*3/?L. The reference range was not used to interpret this result as normal/abnormal. MPV (test code = 17142-0) 10.3 fL 9.5-12.9 NRBC/100 WBC (test code = 1188868142) See_Comment [Automated [employer] ssage] The system which generated this result transmitted reference range: 0.0 - 10.0 /100 WBCs. The reference range was not used to interpret this result as normal/abnormal. NRBC x10^3 (test code = 4794102722) <0.01 See_Comment [Automated messa ge] The system which generated this result transmitted reference range: 10*3/?L. The reference range was not used to interpret this result as normal/abnormal. GRAN MAT (NEUT) % (test code = 770-8) 77.3 % IMM GRAN % (test code = 9286671033) 0.60 % LYMPH % (test code = 736-9) 10.4 % MONO % (test code = 5905-5) 11.6 % EOS % (test code = 713-8) 0.0 % BASO % (test code = 706-2) 0.1 % GRAN MAT x10^3(ANC) (test code = 0442514224) 9.74 10*3/uL 1.88-7.09 H IMM GRAN x10^3 (test code = 1239303898) 0.07 10*3/uL 0.00-0.06 H LYMPH x10^3 (test code = 731-0) 1.31 10*3/uL 1.32-3.29 L MONO x10^3 (test code = 742-7) 1.46 10*3/uL 0.33-0.92 H EOS x10^3 (test code = 711-2) <0.03 0.03-0.39 L BASO x10^3 (test code = 704-7) <0.03 0.01-0.07 Lab Interpretation (test code = 42956-6) [facility] VW XUOEV0530-11-11 21:01:59 Successful right knee arthroplasty RL: 231 End of report Electronically signed by Prasanna Zurita at11/08/2020 4:01 PMORDERING PHYSICIAN: SHELBY BENSON TECHNIQUE: Right knee 2 views STUDY QUALITY: Adequate HISTORY: Post arthroplasty COMPARISON: None FINDINGS:Status post arthroplasty of the right knee. The prosthesis projects inappropriate position and alignment. There are no periprosthetic fractures. There is a catheter with the tip terminating anterior to the tibia withinthe knee joint. [facility], Radiant Results Inft User - 11/08/2020 4:03 PM CDT ORDERING PHYSICIAN: JASPREET BENSONTECHNIQUE: Right knee 2 viewsSTUDY QUALITY: Adequate HISTORY: Post arthroplastyCOMPARISON: NoneFINDINGS:Status post arthroplasty of the right knee. The prosthesis projects inappropriate position and alignment.There are no periprosthetic fractures.Thereis a catheter with the tip terminating anterior to the tibia withinthe knee joint.IMPRESSIONSuccessful right knee arthroplastyRL: 231End of report [facility] VW RIGHT 2020-11-08 21:01:59Successful right knee arthroplasty RL: 231 End of report Electronically signed by Prasanna Zurita at11/08/2020 4:01 PMORDERING PHYSICIAN: ?JASPREET BENSON TECHNIQUE: Right knee 2 views STUDY QUALITY: Adequate HISTORY: Post arthroplasty COMPARISON: None FINDINGS:Status post arthroplasty of the right knee. The prosthesis projects inappropriate position and alignment. There are no periprosthetic fractures. There is a catheter with the tip terminating anterior to the tibia withinthe knee joint. [facility], Radiant Results Inft User - 11/08/2020 4:03 PM CDT ORDERING PHYSICIAN: JASPREET BENSONTECHTEDQUE: Right knee 2 viewsSTUDY QUALITY: AdequateHISTORY: Post arthroplastyCOMPARISON: NoneFINDINGS:Status post arthroplasty of the right knee. The prosthesis projects inappropriate position and alignment.There are no periprosthetic fractures.Thereis a catheter with the tip terminating anterior to the tibia withinthe knee joint.IMPRESSIONSuccessful right knee arthroplastyRL: 231End of report [facility] CenterType and Screen - 2020-11-05 18:54:11* Test Item Value Reference Range Interpretation Comme nts ABO & RH (test code = 20) B Positive Performed at [facility] Laboratory [facility] Blood [address] [place] [address] Free: [phone] No. [id number] IAT (test code = 1185) Negative Performed at [facility] Blood [address] Free: [phone] No. [id number] [facility] (NA, K, CL, CO2, GLUCOSE, BUN, CREATININE, CA)2020-11-05 17:45:12* Test Item Value Reference Range Interpretation Comme nts NA (test code = 0673896679) 136 mmol/L 135-145 K (test code = 0312530737) 4.1 mmol/L 3.5-5.0 CL (test code = 3658545345) 100 mmol/L 98-108 CO2 TOTAL (test code = 8974830437) 26 mmol/L 23-31 AGAP (test code = 5804928127) 2-16 BUN (test code = 8059898593) 9 mg/dL 7-23 GLUCOSE (test code = 8999680716) 113 mg/dL 70-110 H CREATININE (test code = 1257067933) 0.55 mg/dL 0.50-1.04 CALCIUM (test code = 7082726004) 9.4 mg/dL 8.6-10.6 eGFR (test code = 1112394625) mL/min/1.73m2 DENNYS (test code = DENNYS) Association of Glomerular Filtration Rate (GFR) and Staging of Kidney Disease* + --+ --+ ------+| GFR (mL/min/1.73 m2) ?| With Kidney Damage ?| ?Without Kidney Damage+ --------+ --------+ +| ?>90 ?| ?Stage one ?| ? Normal ?+ ---+ ---+ -------+| ?60-89 ?| ?Stage two ?| ? Decreased GFR ? + --+ --+ ------+| ?30-59 ?| ?Stage three ?| ? Stage three ? + --+ --+ ------+| ?15-29 ?| ?Stage four ? | ? Stage four ?+ ---+ ---+ -------+| ?<15 (or dialysis) ? ?| ?Stage five ? | ? Stage five ?+ ---+ ---+ -------+ *Each stage assumes the associated GFR level has been in effect for at least three months. ?Stages 1 to 5, with or without kidney disease, indicate chronic kidney disease. Notes: Determination of stages one and two (with eGFR >59mL/min/1.73 m2) requires estimation of kidney damage for at least three months as defined by structural or functional abnormalities of the kidney, manifested by either:Pathological abnormalities or Markers of kidney damage (including abnormalities in the composition of the blood or urine or abnormalities in imaging tests). Lab Interpretation (test code = 88018-2) [facility]normal [facility] (Lab Only)2020-11-05 17:14:50* Test Item Value Reference Range Interpretation Comme [facility] ABO & RH (test code = 20) B Positive Performed at [facility] B Laboratory Services - [facility] Blood [address] [place], [place] [id number] Free: [phone] No. [id number] [facility] WITH [id number] 16:52:23* Test Item Value Reference Range Interpretation Comme nts WBC (test code = 6690-2) See_Comment [Automated messa ge] The system which generated this result transmitted reference range: 4.30 - 11.10 10*3/?L. The reference range was not used to interpret this result as normal/abnormal. RBC (test code = 789-8) See_Comment L [Automated messa ge] The system which generated this result transmitted reference range: 3.93 - 5.25 10*6/?L. The reference range was not used to interpret this result as normal/abnormal. HGB (test code = 718-7) 14.5 g/dL 11.6-15.0 HCT (test code = 4544-3) 43.6 % 35.7-45.2 MCV (test code = 787-2) 113.0 fL 80.6-95.5 H MCH (test code = 785-6) 37.6 pg 25.9-32.8 H MCHC (test code = 786-4) 33.3 g/dL 31.6-35.1 RDW-SD (test code = 50489-9) 51.5 fL 39.0-49.9 H RDW-CV (test code = 788-0) 12.3 % 12.0-15.5 PLT (test code = 777-3) See_Comment [Automated REGISTRAT-MAPIa ge] The system which generated this result transmitted reference range: 166 - 358 10*3/?L. The reference range was not used to interpret this result as normal/abnormal. MPV (test code = 22057-3) 9.6 fL 9.5-12.9 NRBC/100 WBC (test code = 6964027714) See_Comment [Automated [employer] ssage] The system which generated this result transmitted reference range: 0.0 - 10.0 /100 WBCs. The reference range was not used to interpret this result as normal/abnormal. NRBC x10^3 (test code = 4048730458) <0.01 See_Comment [Automated REGISTRAT-MAPIa ge] The system which generated this result transmitted reference range: 10*3/?L. The reference range was not used to interpret this result as normal/abnormal. GRAN MAT (NEUT) % (test code = 770-8) 58.9 % IMM GRAN % (test code = 2217248025) 0.50 % LYMPH % (test code = 736-9) 26.5 % MONO % (test code = 5905-5) 12.1 % EOS % (test code = 713-8) 1.4 % BASO % (test code = 706-2) 0.6 % GRAN MAT x10^3(ANC) (test code = 5697612603) 4.56 10*3/uL 1.88-7.09 IMM GRAN x10^3 (test code = 1435390513) 0.04 10*3/uL 0.00-0.06 LYMPH x10^3 (test code = 731-0) 2.05 10*3/uL 1.32-3.29 MONO x10^3 (test code = 742-7) 0.94 10*3/uL 0.33-0.92 H EOS x10^3 (test code = 711-2) 0.11 10*3/uL 0.03-0.39 BASO x10^3 (test code = 704-7) 0.05 10*3/uL 0.01-0.07 Lab Interpretation (test code = 76836-4) Abnormal [facility] WITH [id number] 16:52:23* Test Item Value Reference Range Interpretation Comme nts WBC (test code = 6690-2) See_Comment [Automated messa ge] The system which generated this result transmitted reference range: 4.30 - 11.10 10*3/?L. The reference range was not used to interpret this result as normal/abnormal. RBC (test code = 789-8) See_Comment L [Automated messa ge] The system which generated this result transmitted reference range: 3.93 - 5.25 10*6/?L. The reference range was not used to interpret this result as normal/abnormal. HGB (test code = 718-7) 14.5 g/dL 11.6-15.0 HCT (test code = 4544-3) 43.6 % 35.7-45.2 MCV (test code = 787-2) 113.0 fL 80.6-95.5 H MCH (test code = 785-6) 37.6 pg 25.9-32.8 H MCHC (test code = 786-4) 33.3 g/dL 31.6-35.1 RDW-SD (test code = 16888-3) 51.5 fL 39.0-49.9 H RDW-CV (test code = 788-0) 12.3 % 12.0-15.5 PLT (test code = 777-3) See_Comment [Automated messa ge] The system which generated this result transmitted reference range: 166 - 358 10*3/?L. The reference range was not used to interpret this result as normal/abnormal. MPV (test code = 73391-3) 9.6 fL 9.5-12.9 NRBC/100 WBC (test code = 1583237904) See_Comment [Automated me ssage] The system which generated this result transmitted reference range: 0.0 - 10.0 /100 WBCs. The reference range was not used to interpret this result as normal/abnormal. NRBC x10^3 (test code = 5293213893) <0.01 See_Comment [Automated messa ge] The system which generated this result transmitted reference range: 10*3/?L. The reference range was not used to interpret this result as normal/abnormal. GRAN MAT (NEUT) % (test code = 770-8) 58.9 % IMM GRAN % (test code = 8578649712) 0.50 % LYMPH % (test code = 736-9) 26.5 % MONO % (test code = 5905-5) 12.1 % EOS % (test code = 713-8) 1.4 % BASO % (test code = 706-2) 0.6 % GRAN MAT x10^3(ANC) (test code = 9565374896) 4.56 10*3/uL 1.88-7.09 IMM GRAN x10^3 (test code = 0977411964) 0.04 10*3/uL 0.00-0.06 LYMPH x10^3 (test code = 731-0) 2.05 10*3/uL 1.32-3.29 MONO x10^3 (test code = 742-7) 0.94 10*3/uL 0.33-0.92 H EOS x10^3 (test code = 711-2) 0.11 10*3/uL 0.03-0.39 BASO x10^3 (test code = 704-7) 0.05 10*3/uL 0.01-0.07 Lab Interpretation (test code = 20631-4) [facility]normal [facility] [id number] 16:29:15EXAM: XR CHEST 2 VW HISTORY: surgery COMPARISON: None. FINDINGS: The heart and great vessels are normal and the lungs are well expanded andclear except for an oblique bandlike density in the left lung baseanteriorly probably due to subsegmental atelectasis. ? [facility], Radiant Results Inft User - 11/05/2020 11:30 AM CDT EXAM: XR CHEST 2 VWHISTORY: surgery COMPARISON: None.FINDINGS:The heart and great vessels are normal and the lungs are well expanded andclear except for an oblique bandlike density in the left lung baseanteriorly probablydue to subsegmental atelectasis. [facility] KNEE <3 VW [id number] 15:56:51[facility]one on bone osteoarthritisUnCHRIST[facility]"
[2023-07-02 21:07] LABS: Absolute Lymphocytes (CBC) 1.1 K/uL (0.7-4.9); Absolute Monocytes 1.3 K/uL (0.1-1.3); Absolute Neutrophil 7.5 K/uL (1.8-8.0); Basophils % 0.5 % (0-1.3); Eosinophils % 0.2 % (0-4.4); Hematocrit 38.5 % (36.0-45.0); Hemoglobin 13.4 g/dL (12.0-15.0); Lymphocytes % 11.2 % (15.3-44.8); MCH 37.8 pg (27.0-35.0); MCHC 34.8 g/dL (32.0-36.0); MCV 108.7 fL (80-100); MPV 6.9 fL (7.6-11.3); Neutrophils % 75.1 % (41.7-73.7); Platelets 238 thou/uL (152-406); RBC Red Blood Cell Count 3.54 M/uL (3.86-4.86); Red Cell Distribution Width 15.6 % (12.1-15.2)
[2023-07-02 21:31] LABS: Albumin 2.4 g/dL (3.4-5.0); Albumin/Globulin Ratio 0.4 (1.1-1.8); Protein, Total 8.4 g/dL (6.4-8.2)
[2023-07-02 21:48] LABS: Anion Gap 13.7 mEq/L (5.0-15.0); Potassium 2.7 mEq/L (3.5-5.1)
[2023-07-02 22:52] LABS: Band Neutrophils 10 % (0-1); Differential Total Cells Count 100; Lymphocytes 14 % (15-42); Monocytes 5 % (0-10); Reactive Lymphocytes 2 %; Segmented Neutrophils 69 % (40-80)
[2023-07-02 22:53] LABS: Blood Morphology Comment NOTED (NOT SEEN); Macrocytosis 1+; Platelet Estimate ADEQ
[2023-07-02] MEDS ORDERED: NA CHLORIDE 0.9% 1,000 ML ONE (23:01)
[2023-07-02] MEDS ORDERED: CEFTRIAXONE 1000 MG/VIAL ONE (23:01)
[2023-07-02] MEDS ORDERED: METRONIDAZOLE 500mg IVPB 500 MG/100 ML BAG IV ONE (23:01)
--- NOTE | 2023-07-02 23:24 | EDPHYS ---
Physician Documentation [facility] Name: Jacquelyn Saab Age: 68 yrs Sex: Female : 1955 Arrival Date: 07/02/2023 Time: 19:55 Bed 7 Private MD: None, None ED Physician James Chandler HPI: 07/01 20:43 This 68 yrs old Female presents to ER via Wheelchair with complaints of CLEAR ec2 FLUID FROM ABDOMAN. 20:43 Patient arrives today for evaluation of fluid from the abdomen. Patient reports that ec2 she had noticed some type of mass over her mid abdomen, states that this have subsequently burst and now she is draining fluid. Patient reports no abdominal pain, no fevers or chills, nausea or vomiting. Reports extensive alcohol history, stopped drinking approximately 7 years ago however does have a history of liver cirrhosis as well as ascites however has never required paracentesis. . Historical: - Allergies: 20:39 No Known Allergies; jj7 - PMHx: 20:39 Cirrhosis of liver; ASCITES; jj7 - PSHx: 20:39 HERNIA REPAIR; Appendectomy; HYSTERECTOMY; section; Cholecystectomy; jj7 - Immunization history:: Client reports having NOT received the Covid vaccine. Flu vaccine is not up to date. - Social history:: Smoking status: Patient reports the use of cigarette tobacco products, smokes .25 packs per day, Patient uses alcohol, on a daily basis. Patient/guardian denies using street drugs, IV drugs. ROS: 20:43 Constitutional: as per hpi ec2 Exam: 20:43 Constitutional: GEN: NAD Head: atraumatic Eyes: EOMI Ears: External ears are ec2 normal. CV: regular rate LUNGS: no respiratory distress ABD: non-distended, soft, nontender, no guarding, not rigid. SKIN: Wound over the midabdomen, yellowish fluid, appears peritoneal. MSK: no evidence of trauma NEURO: moves all extremities equally Vital Signs: 20:31 BP 98 / 70; Pulse 113; Resp 17; Temp 97.8; Pulse Ox 99% ; Weight 72.57 kg; Height 5 ft. jj7 7 in. ; 21:30 BP 96 / 73; Pulse 107; Resp 18; Pulse Ox 97% on R/A; cm10 22:00 BP 100 / 81; cm10 22:30 BP 128 / 76; Pulse 106; Resp 18; Pulse Ox 100% on R/A; cm10 07/02 00:00 BP 94 / 63; Pulse 111; Resp 19; Pulse Ox 94% on R/A; km8 00:30 BP 103 / 60; Pulse 111; Resp 16; Pulse Ox 93% on R/A; km8 01:00 BP 106 / 65; Pulse 109; Resp 16; Pulse Ox 95% on R/A; km8 01:30 BP 109 / 68; Pulse 110; Resp 16; Pulse Ox 94% on R/A; km8 02:00 BP 106 / 64; Pulse 120; Resp 16; Pulse Ox 93% on R/A; km8 02:04 Temp 99.6(O); cm10 02:30 BP 112 / 84; Pulse 120; Resp 17; Pulse Ox 100% on 2 lpm NC; cm10 03:20 BP 109 / 69; Pulse 130; Resp 18; Pulse Ox 95% on 2 lpm NC; cm10 04:00 BP 94 / 64; Pulse 127; Resp 18; Pulse Ox 96% on 2 lpm NC; cm10 04:35 BP 89 / 68; Pulse 129; Resp 18; Pulse Ox 94% on R/A; cm10 05:00 BP 93 / 68; Pulse 122; Resp 18; Pulse Ox 95% on 2 lpm NC; cm10 07:00 BP 92 / 75; Pulse 124; Resp 18; Pulse Ox 95% on 2 lpm NC; cm10 10:36 BP 99 / 59; Pulse 73; Resp 18; Pulse Ox 99% on 2 lpm NC; ld1 12:02 BP 90 / 68; Pulse 109; Resp 18; Pulse Ox 96% on R/A; ld1 13:03 BP 95 / 65; Pulse 103; Resp 12 S; Pulse Ox 98% on R/A; as6 14:00 BP 123 / 89; Pulse 103; Resp 18; Pulse Ox 95% ; ld1 15:00 BP 134 / 75; Pulse 111; Resp 18; Pulse Ox 93% on R/A; ld1 07/01 20:31 Body Mass Index 25.06 (72.57 kg, 170.18 cm) jj7 04:35 Dr. Reeves made aware, [place] orders for continuous fluids obtained. cm10 Procedures: 02:46 Central Line: the site was prepped with Betadine, in sterile fashion, a triple lumen ec2 catheter was inserted, in the right internal jugular vein, in 1 attempts. placement was verified, by CXR, by blood return, the site was dressed with Tegaderm, using sterile technique, the patient tolerated the procedure, well. MDM: 07/01 20:41 Patient medically screened. ec2 20:43 Data reviewed: vital signs. ED course: Patient arrives today for evaluation of drainage ec2 from the abdomen. Examination remarkable for abdominal and skin findings as above. Will obtain lab work, CT imaging. Evaluating for peritoneal abdominal fistula. Decompensated liver cirrhosis.. 21:59 ED course: Metabolic profile shows slight hypokalemia with a potassium of 2.7, LFTs ec2 with a T. bili of 5.0. CBC without leukocytosis. Will obtain dedicated gallbladder ultrasound as well given the patient is hyperbilirubinemia. . 23:16 ED course: EKG independently reviewed and interpreted by me, shows sinus tachycardia, ec2 rate 113, no acute ST segment elevations, intervals are pertinent for QTc prolongation at 521.. 23:22 ED course: CT scan shows anterior abdominal wall hernia that contains fluid as well as ec2 transverse colon. This appears to be the Portion I see on physical examination. I discussed the case with general surgery on-call, Dr. Farooq, recommends transfer.. 07/02 00:43 ED course: Of note patient with lactic acid at 3.7. Suspect this is also secondary to ec2 the patient's decompensated liver cirrhosis. Patient clinically with improving signs of endorgan function with improvement in tachycardia as well as improvement in blood pressure after crystalloid administration.. 00:48 ED course: I discussed the case with general surgery at [facility], he ec2 accepts for transfer however possible was in capacity and declines. Additionally I discussed the case with [facility] Jose Odonnell who declines transfer due to capabilities. [facility] declines due to capacity.. 02:46 ED course: Patient with increasing tachycardia to 120s, suspect possible worsening ec2 endorgan function, subsequently I decided to place central line in case of deterioration. Central in place without issue. Will treat as severe sepsis, possible septic shock. Sepsis reassessment completed.. 02:55 ED course: Repeat chest x-ray independently reviewed and interpreted by me, shows ec2 appropriately placed right central line terminating in the SVC area. . 03:57 ED course: Repeat lactic acid improving. Will defer pressor management.. ec2 04:26 ED course: Contract Serviceman has called many hospitals in the [facility] area with no ec2 success.. 09:12 Differential Diagnosis Hernia, ascitic fluid leak, sepsis. rt 07/01 20:43 Order name: CBC with Diff; Complete Time: 23:00 ec2 07/01 20:43 Order name: CMP; Complete Time: 21:58 ec2 07/01 20:43 Order name: Lipase; Complete Time: 21:58 ec2 07/01 21:30 Order name: Manual Differential; Complete Time: 23:00 EDMS 07/01 22:48 Order name: Blood Culture Adult (2) ec2 07/01 22:48 Order name: Lactate w/ 2H reflex if indic.; Complete Time: 00:43 ec2 07/01 22:48 Order name: Protime (+inr); Complete Time: 00:34 ec2 07/01 22:48 Order name: Ptt, Activated; Complete Time: 00:34 ec2 07/02 03:56 Order name: Lactate Sepsis 2 HR Follow-up; Complete Time: 03:57 EDMS 07/02 07:55 Order name: CBC with Diff; Complete Time: 10:55 rt 07/02 07:55 Order name: CMP; Complete Time: 10:55 rt 07/02 07:55 Order name: Lactate w/ 2H reflex if indic.; Complete Time: 10:55 rt 07/02 09:10 Order name: CBC Smear Scan; Complete Time: 10:55 EDMS 07/01 20:43 Order name: CT Abd/Pelvis - IV Contrast Only ec2 07/01 22:00 Order name: US Abdomen Limited ec2 07/02 02:46 Order name: CXR XRAY ec2 07/01 22:48 Order name: EKG; Complete Time: 22:48 ec2 07/01 20:43 Order name: IV Saline Lock; Complete Time: 21:08 ec2 07/01 20:43 Order name: Labs collected and sent; Complete Time: 21:08 ec2 07/01 22:48 Order name: Accucheck; Complete Time: 12:03 ec2 07/01 22:48 Order name: Cardiac monitoring; Complete Time: 23:24 ec2 07/01 22:48 Order name: EKG - Nurse/Tech; Complete Time: 23:07 ec2 07/01 22:48 Order name: IV Saline Lock - Large Bore; Complete Time: 22:54 ec2 07/01 22:48 Order name: O2 Per Protocol; Complete Time: 22:54 ec2 07/01 22:48 Order name: O2 Sat Monitoring; Complete Time: 22:54 ec2 07/01 22:48 Order name: Vital Signs; Complete Time: 22:53 ec2 Administered Medications: 07/01 23:57 Drug: NS 0.9% IV 1000 ml IV at 1 bolus Per protocol; 1000 mL bolus Route: IV; Rate: 1 cm10 bolus; Site: right antecubital; 07/02 00:50 Follow up: Response: No adverse reaction; IV Status: Completed infusion; IV Intake: cm10 1000ml 07/01 23:57 Drug: Rocephin IV 1 grams IV at calculated rate once; Given slow IV push per pharmacy cm10 instructions Route: IV; Rate: calculated rate; Site: right antecubital; 23:58 Follow up: Response: No adverse reaction; IV Status: Completed infusion; IV Intake: [id number] 23:58 Drug: Potassium Chloride PO 40 mEq PO once Route: PO; cm10 23:58 Follow up: Response: No adverse reaction cm10 23:58 Drug: morphine IVP or IV 4 mg IVP once over 4 mins Route: IVP; Infused Over: 4 mins; cm10 Site: right antecubital; 07/02 00:52 Follow up: Response: No adverse reaction cm10 00:13 Drug: metroNIDAZOLE IVPB 500 mg 100 ml IVPB at 200 ml/hr once over 30 mins Volume: 100 cm10 ml; Route: IVPB; Rate: 200 ml/hr; Infused Over: 30 mins; Site: right antecubital; 01:14 Follow up: IV Status: Completed infusion; IV Intake: 100ml km8 00:52 Drug: NS 0.9% IV (30 ml/kg) 30 ml/kg IV at bolus once; Sepsis Protocol minus 1 liter cm10 Route: IV; Rate: bolus; Site: right antecubital; 01:48 Follow up: Response: No adverse reaction; IV Status: Completed infusion; IV Intake: cm10 1177ml 02:03 Drug: morphine IVP or IV 4 mg IVP once over 4 mins Route: IVP; Infused Over: 4 mins; cm10 Site: right antecubital; 03:02 Follow up: Response: No adverse reaction cm10 04:53 Drug: NS 0.9% IV 1000 ml IV at 125 ml/hr continuous Route: IV; Rate: 125 ml/hr; Site: cm10 right antecubital; 06:44 Drug: fentaNYL (PF) IVP 50 mcg IVP every 20 minutes x3 Route: IVP; Site: left cm10 antecubital; 09:40 Drug: metroNIDAZOLE IVPB 500 mg 100 ml IVPB at 200 ml/hr once over 30 mins Volume: 100 ld1 ml; Route: IVPB; Rate: 200 ml/hr; Infused Over: 30 mins; Site: right antecubital; 12:02 Drug: Rocephin IV 1 grams IV at calculated rate once; Given slow IV push per pharmacy ld1 instructions GIVE at 1200 Route: IV; Rate: calculated rate; Site: right antecubital; 12:02 Drug: Lactated Ringers Solution IV 1000 ml IV at 150 ml/hr continuous Route: IV; Rate: ld1 150 ml/hr; Site: right antecubital; 12:02 Drug: Potassium Chloride PO 40 mEq PO once Route: PO; ld1 Disposition Summary: 07/02/23 23:23 Transfer Ordered Notes: Transfer Location: Other Acute Care Facility ec2 Reason: Higher level of care ec2 Condition: Stable ec2 Problem: new ec2 Symptoms: are unchanged ec2 Accepting Physician: transferring doc(07/03/23 19:06) vc1 Diagnosis - Open Abdominal Wall Hernia ec2 - Alcoholic cirrhosis of liver with ascites ec2 - Severe sepsis without septic shock ec2 Forms: - Medication Reconciliation Form ec2 - SBAR form ec2 Critical care time excluding procedures: 02:58 Critical care time: Bedside Care: 30 minutes, Consultation: 20 minutes. Total time: 50 ec2 minutes Signatures: Dispatcher [employer] EDLeonie Lord RN RN ld1 Miryam Dimas RN RN vc1 Austin Gutierrez RN RN jj7 James Chandler MD MD rt Kaelyn Larios RN RN cm10 Khanh Reeves MD MD ec2 Louise Bella RN km8 Corrections: (The following items were deleted from the chart) 01:20 07/01 23:23 transferring doc ec2 ec2 07/02 01:49 07/01 20:43 Constitutional: GEN: NAD Head: atraumatic Eyes: EOMI Ears: External ears ec2 are normal. CV: regular rate LUNGS: no respiratory distress ABD: non-distended, soft, nontender, no guarding, not rigid. SKIN: Wound over the left abdomen, yellowish fluid, appears peritoneal. MSK: no evidence of trauma NEURO: moves all extremities equally ec2 07/02 02:47 01:20 transferring doc ec2 ec2 03:57 03:57 ED course: Repeat lactic acid improving. Will defer pressure management.. ec2 ec2 13:34 07/01 20:43 Urinalysis+U.LAB.BRZ ordered. EDMS EDMS 07/02 19:06 02:47 transferring doc ec2 vc1
--- NOTE | 2023-07-02 23:24 | ER ---
Nurse's Notes [facility] Name: Jacquelyn Saab Age: 68 yrs Sex: Female : 1955 Arrival Date: 07/02/2023 Time: 19:55 Bed 7 Private MD: None, None Diagnosis: Open Abdominal Wall Hernia;Alcoholic cirrhosis of liver with ascites;Severe sepsis without septic shock Presentation: 07/01 20:31 Chief complaint: Patient states: ABD SWELLING. YELLOW LIQUID COMING OUT TODAY. jj7 STATES ABD SWELLING STARTED MONTHS AGO AND THOUGHT IT WAS A HERNIA. Coronavirus screen: At this time, the client does not indicate any symptoms associated with coronavirus-19. Ebola Screen: No symptoms or risks identified at this time. Initial Sepsis Screen: Does the patient meet any 2 criteria? HR > 90 bpm. Yes Does the patient have a suspected source of infection? No. Patient's initial sepsis screen is negative. Risk Assessment: Do you want to hurt yourself or someone else? Patient reports no desire to harm self or others. 20:31 Method Of Arrival: Wheelchair [facility] 20:31 Acuity: PIO 3 j7 Triage Assessment: 20:39 General: Appears in no apparent distress. uncomfortable, Behavior is calm, cooperative, jj7 agitated. Pain: Complains of pain in right lower quadrant and left lower quadrant. Historical: - Allergies: 20:39 No Known Allergies; jj7 - PMHx: 20:39 Cirrhosis of liver; ASCITES; jj7 - PSHx: 20:39 HERNIA REPAIR; Appendectomy; HYSTERECTOMY; section; Cholecystectomy; jj7 - Immunization history:: Client reports having NOT received the Covid vaccine. Flu vaccine is not up to date. - Social history:: Smoking status: Patient reports the use of cigarette tobacco products, smokes .25 packs per day, Patient uses alcohol, on a daily basis. Patient/guardian denies using street drugs, IV drugs. Screenin:18 [facility] ED Fall Risk Assessment (Adult) History of falling in the last 3 months, cm10 including since admission No falls in past 3 months (0 pts) Confusion or Disorientation No (0 pts) Intoxicated or Sedated No (0 pts) Impaired Gait Yes (1 pt) Mobility Assist Device Used Yes (1 pt) Altered Elimination No (0 pt) Score/Fall Risk Level 0 - 2 = Low Risk Oriented to surroundings, Maintained a safe environment, Hourly rounding (assess needs \T\ fall precautionary measures) done. Abuse screen: Denies threats or abuse. Denies injuries from another. Nutritional screening: No deficits noted. Tuberculosis screening: No symptoms or risk factors identified. Assessment: 21:18 General: Appears in no apparent distress. comfortable, Behavior is calm, cooperative, cm10 appropriate for age. Pain: Complains of pain in abdomen and left lower quadrant and right lower quadrant Pain does not radiate. Pain began gradually. Neuro: No deficits noted. Level of Consciousness is awake, alert, obeys commands, Oriented to person, place, time, situation. Cardiovascular: No deficits noted. Capillary refill < 3 seconds Patient's skin is warm and dry. Respiratory: No deficits noted. Airway is patent Respiratory effort is even, unlabored, Respiratory pattern is regular, symmetrical. GI: No deficits noted. Abdomen is distended, Reports lower abdominal pain, bloating, Drainage from abdomen. : No deficits noted. EENT: No deficits noted. No signs and/or symptoms were reported regarding the EENT system. Derm: No deficits noted. No signs and/or symptoms reported regarding the dermatologic system. Skin is pink, warm \T\ dry. Musculoskeletal: No deficits noted. No signs and/or symptoms reported regarding the musculoskeletal system. Range of motion: intact in all extremities. 22:53 Reassessment: US at bedside. cm10 23:34 Derm: Wound noted umbilical area. cm10 07/02 00:48 General: [facility] declined transfer due to being at capacity. vc1 00:50 Reassessment: Patient appears in no apparent distress at this time. Patient and/or cm10 family updated on plan of care and expected duration. Pain level reassessed. Patient is alert, oriented x 3, equal unlabored respirations, skin warm/dry/pink. 02:04 Reassessment: No changes from previously documented assessment. Patient and/or family cm10 updated on plan of care and expected duration. Pain level reassessed. Patient is alert, oriented x 3, equal unlabored respirations, skin warm/dry/pink. 02:17 Reassessment: Pt consented for central line placement. Dr. Reeves at bedside for cm10 placement. 03:30 Reassessment: No changes from previously documented assessment. Patient and/or family cm10 updated on plan of care and expected duration. Pain level reassessed. Patient is alert, oriented x 3, equal unlabored respirations, skin warm/dry/pink. Pt's dressing noted to be saturated. Pt's dressing changed at this time. 04:17 Reassessment: Pt and pt's updated on plan of care at this time. Pt made aware cm10 that at this time we have not received acceptance to another facility for transfer. 07:30 Reassessment: Patient appears in no apparent distress at this time. No changes from ld1 previously documented assessment. Patient and/or family updated on plan of care and expected duration. Pain level reassessed. Patient is alert, oriented x 3, equal unlabored respirations, skin warm/dry/pink. 10:30 Reassessment: Patient appears in no apparent distress at this time. No changes from ld1 previously documented assessment. Patient is alert, oriented x 3, equal unlabored respirations, skin warm/dry/pink. 12:00 Reassessment: Patient appears in no apparent distress at this time. No changes from ld1 previously documented assessment. 12:15 Reassessment: Pt placed on purewick. Denies concerns at this time. ld1 14:00 Reassessment: Patient appears in no apparent distress at this time. Patient and/or ld1 family updated on plan of care and expected duration. Pain level reassessed. Patient is alert, oriented x 3, equal unlabored respirations, skin warm/dry/pink. 15:58 Reassessment: Patient appears in no apparent distress at this time. No changes from ld1 previously documented assessment. Patient and/or family updated on plan of care and expected duration. Pain level reassessed. Vital Signs: 07/01 20:31 BP 98 / 70; Pulse 113; Resp 17; Temp 97.8; Pulse Ox 99% ; Weight 72.57 kg; Height 5 ft. jj7 7 in. ; 21:30 BP 96 / 73; Pulse 107; Resp 18; Pulse Ox 97% on R/A; cm10 22:00 BP 100 / 81; cm10 22:30 BP 128 / 76; Pulse 106; Resp 18; Pulse Ox 100% on R/A; cm10 07/02 00:00 BP 94 / 63; Pulse 111; Resp 19; Pulse Ox 94% on R/A; km8 00:30 BP 103 / 60; Pulse 111; Resp 16; Pulse Ox 93% on R/A; km8 01:00 BP 106 / 65; Pulse 109; Resp 16; Pulse Ox 95% on R/A; km8 01:30 BP 109 / 68; Pulse 110; Resp 16; Pulse Ox 94% on R/A; km8 02:00 BP 106 / 64; Pulse 120; Resp 16; Pulse Ox 93% on R/A; km8 02:04 Temp 99.6(O); cm10 02:30 BP 112 / 84; Pulse 120; Resp 17; Pulse Ox 100% on 2 lpm NC; cm10 03:20 BP 109 / 69; Pulse 130; Resp 18; Pulse Ox 95% on 2 lpm NC; cm10 04:00 BP 94 / 64; Pulse 127; Resp 18; Pulse Ox 96% on 2 lpm NC; cm10 04:35 BP 89 / 68; Pulse 129; Resp 18; Pulse Ox 94% on R/A; cm10 05:00 BP 93 / 68; Pulse 122; Resp 18; Pulse Ox 95% on 2 lpm NC; cm10 07:00 BP 92 / 75; Pulse 124; Resp 18; Pulse Ox 95% on 2 lpm NC; cm10 10:36 BP 99 / 59; Pulse 73; Resp 18; Pulse Ox 99% on 2 lpm NC; ld1 12:02 BP 90 / 68; Pulse 109; Resp 18; Pulse Ox 96% on R/A; ld1 13:03 BP 95 / 65; Pulse 103; Resp 12 S; Pulse Ox 98% on R/A; as6 14:00 BP 123 / 89; Pulse 103; Resp 18; Pulse Ox 95% ; ld1 15:00 BP 134 / 75; Pulse 111; Resp 18; Pulse Ox 93% on R/A; ld1 07/01 20:31 Body Mass Index 25.06 (72.57 kg, 170.18 cm) jj7 04:35 Dr. Reeves made aware, Vebal orders for continuous fluids obtained. [facility] ED Course: 07/01 19:59 Patient arrived in ED. es 20:00 None, None is Private Physician. es 20:06 Khanh Reeves MD is Attending Physician. ec2 20:39 Triage completed. jj7 20:39 Arm band placed on right wrist. jj7 20:57 Inserted saline lock: 20 gauge in right antecubital area, using aseptic technique. mb9 Blood collected. 20:57 Initial lab(s) drawn, by me, sent to lab. mb9 21:18 Kaelyn Larios, RN is Primary Nurse. cm10 21:18 Patient has correct armband on for positive identification. Bed in low position. Call cm10 light in reach. Side rails up X 1. Provided Education on: ER process and procedures. . Pulse ox on. NIBP on. 22:27 CT Abd/Pelvis - IV Contrast Only In Process Unspecified. EDMS 23:07 US Abdomen Limited In Process Unspecified. EDMS 23:21 First set of blood cultures drawn by me. cm10 23:21 Missed attempt(s): 22 gauge in left wrist. forearm. Bleeding controlled, band aid cm10 applied, catheter tip intact. 23:33 Wound care: to open wound noted to patient's abdomen. Wound noted to be draining yellow cm10 liquid. located on umbilical area was dressed with 4X4s, ABD pads, Patient tolerated well. 23:33 Dressings: ABD pad X 1; umbilical area 4X4s. cm10 23:48 called to initiate transfer with [facility] spoke with Veda. vk 07/02 00:03 declined to [facility] Main due to capacity. vk 00:23 Patient was declined for [facility] due to subsidy. vk 00:42 Notified ED physician of a critical lab result(s). lactic 3.7. vc1 01:30 patient was declined [facility] due to, surgery being to complex. vk 01:51 Dressings: ABD pad X 1; umbilical area 4X4s. cm10 01:51 Recheck of open wound to umbilical area. on umbilical area is draining. Wound care:. cm10 01:54 called to initiate transfer to [facility] spoke with Faheem. vk 01:59 [facility] denied patient due to capacity at all centers. vk 02:15 Provided Education on: Procedure Consent. cm10 02:27 Oxygen administration via nasal cannula \T\ 2L/min Response to oxygen therapy: symptoms cm10 improved. 02:41 called to [facility] both [facility] at vk capacity patient was denied at both. 02:45 Assisted provider with central line placement. Set up central line tray. Triple lumen cm10 line placed in right internal jugular. Line placed by Khanh Reeves MD Placement verified by blood return, Dressed with Tegaderm, Patient tolerated well. Before procedure, did Practitioner(s) obtain informed consent? Yes. Patient \T\ family education about procedure, CLABSI prevention and S/S of infection? Yes. Was handwashing/sanitizing done immediately prior to procedure? Yes. Was patient positioned to in a way to prevent air embolism? Yes. Was procedure site sterilized? Yes, with chlorhexidine. Was the site allowed to dry? Yes. Was local anesthetic and/or sedation utilized? Yes. During the procedure, did the Practitioner(s) maintain a sterile field? Yes. Were unused ports clamped during insertion? Yes. Was blood aspirated from each lumen? Yes. After the procedure, did the Practitioner(s) clean the site and apply a sterile dressing? Yes. 03:06 CXR XRAY In Process Unspecified. EDMS 03:14 called to initiate transfer with akira bronson spoke with rosa. vk 03:15 Assisted to bedside commode. cm10 03:18 [facility] vk 03:22 called [facility] to initiate transfer to [facility] spoke with Veda. vk 03:30 Dressings: ABD pad X 2; umbilical area 4X4s. Wound care: located on umbilical area was cm10 dressed with 4X4s, ABD pads, Patient tolerated well. 03:49 called to initiate transfer to [facility] denied vk due to capacity. 07:10 Dressings: ABD pad X 2; umbilical area 4X4s. Wound care: was dressed with 4X4s, ABD cm10 pads. 07:11 Report given to PILI Hadley and PILI Sosa. cm10 07:18 Attending Physician role handed off by Khanh Reeves MD rt 07:18 James Chandler MD is Attending Physician. rt 08:03 re initiated transfer to [facility]. bd 09:04 Lactate w/ 2H reflex if indic. Sent. ld1 09:04 CMP Sent. ld1 09:04 CBC with Diff Sent. ld1 10:36 Leonie Reese RN is Primary Nurse. ld1 19:06 Patient transferred, IV remains in place. vc1 Administered Medications: 07/01 23:57 Drug: NS 0.9% IV 1000 ml IV at 1 bolus Per protocol; 1000 mL bolus Route: IV; Rate: 1 cm10 bolus; Site: right antecubital; 07/02 00:50 Follow up: Response: No adverse reaction; IV Status: Completed infusion; IV Intake: cm10 1000ml 07/01 23:57 Drug: Rocephin IV 1 grams IV at calculated rate once; Given slow IV push per pharmacy cm10 instructions Route: IV; Rate: calculated rate; Site: right antecubital; 23:58 Follow up: Response: No adverse reaction; IV Status: Completed infusion; IV Intake: [id number] 23:58 Drug: Potassium Chloride PO 40 mEq PO once Route: PO; cm10 23:58 Follow up: Response: No adverse reaction [facility] 23:58 Drug: morphine IVP or IV 4 mg IVP once over 4 mins Route: IVP; Infused Over: 4 mins; cm10 Site: right antecubital; 07/02 00:52 Follow up: Response: No adverse reaction [facility] 00:13 Drug: metroNIDAZOLE IVPB 500 mg 100 ml IVPB at 200 ml/hr once over 30 mins Volume: 100 cm10 ml; Route: IVPB; Rate: 200 ml/hr; Infused Over: 30 mins; Site: right antecubital; 01:14 Follow up: IV Status: Completed infusion; IV Intake: 100ml km8 00:52 Drug: NS 0.9% IV (30 ml/kg) 30 ml/kg IV at bolus once; Sepsis Protocol minus 1 liter cm10 Route: IV; Rate: bolus; Site: right antecubital; 01:48 Follow up: Response: No adverse reaction; IV Status: Completed infusion; IV Intake: cm10 1177ml 02:03 Drug: morphine IVP or IV 4 mg IVP once over 4 mins Route: IVP; Infused Over: 4 mins; cm10 Site: right antecubital; 03:02 Follow up: Response: No adverse reaction cm10 04:53 Drug: NS 0.9% IV 1000 ml IV at 125 ml/hr continuous Route: IV; Rate: 125 ml/hr; Site: cm10 right antecubital; 06:44 Drug: fentaNYL (PF) IVP 50 mcg IVP every 20 minutes x3 Route: IVP; Site: left cm10 antecubital; 09:40 Drug: metroNIDAZOLE IVPB 500 mg 100 ml IVPB at 200 ml/hr once over 30 mins Volume: 100 ld1 ml; Route: IVPB; Rate: 200 ml/hr; Infused Over: 30 mins; Site: right antecubital; 12:02 Drug: Rocephin IV 1 grams IV at calculated rate once; Given slow IV push per pharmacy ld1 instructions GIVE at 1200 Route: IV; Rate: calculated rate; Site: right antecubital; 12:02 Drug: Lactated Ringers Solution IV 1000 ml IV at 150 ml/hr continuous Route: IV; Rate: ld1 150 ml/hr; Site: right antecubital; 12:02 Drug: Potassium Chloride PO 40 mEq PO once Route: PO; ld1 Medication: 07/01 21:18 VIS not applicable for this client. cm10 Intake: 23:58 IV: 10ml; Total: 10ml. cm10 07/02 00:50 IV: 1000ml; Total: 1010ml. cm10 01:14 IV: 100ml; Total: 1110ml. km8 01:48 IV: 1177ml; Total: 2287ml. cm10 Outcome: 07/01 23:23 ER care complete, transfer ordered by . ec2 07/02 19:05 Transferred by ground EMS to [facility], Transfer form completed. vc1 X-rays sent w/ patient. Condition: stable Instructed on the need for transfer, 19:06 Patient left the ED. vc1 Signatures: Dispatcher [employer] EDMS Jacquelyn Pitt Edna es Sims, Lauren, RN RN ld1 Edmund Anderson RN RN as6 Miryam Dimas RN RN vc1 Austin Gutierrez RN RN jjYnes Aviles RN RN James Capellan MD MD rt Kaelyn Larios RN RN cm10 Khanh Reeves MD MD ec2 Louise Bella RN RN km8 Kavita Roberts Corrections: (The following items were deleted from the chart) 03:00 02:27 Oxygen administration via nasal cannula \T\ 2L/min cm10 cm10 03:32 02:30 BP 112 / 84; Pulse 120bpm; Resp 17bpm; Pulse Ox 100% RA; km8 cm10
[2023-07-02] MEDS ORDERED: POTASSIUM CL SA 10 MEQ TAB PO ONE (23:43)
[2023-07-02] MEDS ORDERED: MORPHINE 4 MG/ML SYR ONE (23:43)
[2023-07-03 00:16] LABS: PT Prothrombin Time 18.8 SECONDS (9.5-12.5); PTT, Activated Partial Thromb 29.9 SECONDS (24.3-36.9); Protime INR 1.74
[2023-07-03] MEDS ORDERED: MORPHINE 4 MG/ML SYR ONE (01:56)
[2023-07-03] MEDS ORDERED: FENTANYL CITR 100 MCG/2 ML ONE ×2 (04:25→06:41)
[2023-07-03] MEDS ORDERED: NA CHLORIDE 0.9% 1,000 ML ONE (04:45)
[2023-07-03 09:01] LABS: Absolute Lymphocytes (CBC) 0.9 K/uL (0.7-4.9); Absolute Neutrophil 13.1 K/uL (1.8-8.0); Basophils % 0.1 % (0-1.3); Hematocrit 36.3 % (36.0-45.0); Hemoglobin 12.3 g/dL (12.0-15.0); Lymphocytes % 5.8 % (15.3-44.8); MCH 36.8 pg (27.0-35.0); MCHC 33.8 g/dL (32.0-36.0); MCV 108.9 fL (80-100); MPV 7.1 fL (7.6-11.3); Monocytes % 12.5 % (3.3-12.3); Neutrophils % 81.6 % (41.7-73.7); Nucleated Red Blood Cells % 0.1 % (0-0); Platelets 203 thou/uL (152-406); RBC Red Blood Cell Count 3.33 M/uL (3.86-4.86)
[2023-07-03 09:19] LABS: Albumin 1.9 g/dL (3.4-5.0); Albumin/Globulin Ratio 0.4 (1.1-1.8); Anion Gap 11.1 mEq/L (5.0-15.0); Bilirubin Total 4.1 mg/dL (0.2-1.0); Globulin 4.8 g/dL (2.3-3.5); Potassium 3.1 mEq/L (3.5-5.1); Protein, Total 6.7 g/dL (6.4-8.2)
[2023-07-03] MEDS ORDERED: METRONIDAZOLE 500mg IVPB 500 MG/100 ML BAG IV ONE (09:21)
[2023-07-03] MEDS ORDERED: CEFTRIAXONE 1000 MG/VIAL ONE (09:21)
--- NOTE | 2023-07-03 10:24 | RAD REPORT ---
EXAM DESCRIPTION: US - Abdomen Exam Limited - 07/02/2023 11:06 pm CLINICAL HISTORY: 68 years Female ruq eval, hx of peace, bili elevated, biliary tree evaluati COMPARISON: None TECHNIQUE: Real-time sonography of the right upper abdomen was performed. FINDINGS: No visualization gallbladder consistent with patient's history of cholecystectomy. Limited visualization common bile duct. Visualized common bile duct measured 5 mm which is within normal ott its following cholecystectomy. No abnormal fluid collections seen. IMPRESSION: Prior cholecystectomy. No extrahepatic biliary dilatation seen. Limited study. Consider correlation with MRCP if further evaluation needed. Electronically signed by: Laura Kern MD 07/02/2023 11:36 PM CDT Due to temporary technical issues with the PACS/Fluency reporting system, reports are being signed by the in house radiologists without review as a courtesy to insure prompt reporting. The interpreting radiologist is fully responsible for the content of the report.
--- NOTE | 2023-07-03 10:31 | RAD REPORT ---
EXAM DESCRIPTION: RAD - Chest Single View - 07/03/2023 3:04 am CLINICAL HISTORY: The patient is 68 years old and is Female; post R IJ CVL placement Bed Name: 7 TECHNIQUE: Frontal view of the chest. COMPARISON: No relevant prior studies available. FINDINGS: LUNGS: No discrete focal consolidation. PLEURAL SPACE: No appreciable pleural effusion or pneumothorax. HEART: Cardiac silhouette is within normal size. MEDIASTINUM: There is prominence of the ascending thoracic aorta. This may be exaggerated secondary to patient positioning, but could not exclude a right mediastinal hematoma status post central line placement.. BONES/JOINTS: No acute osseous abnormality. VASCULATURE: See above. TUBES, LINES AND DEVICES: Right approach CVC tip terminates in the SVC. UPPER ABDOMEN: Right hemidiaphragm elevation. IMPRESSION: 1. Right approach CVC tip terminates in the SVC. 2. There is prominence of the ascending thoracic aorta versus the right superior mediastinum. This may be exaggerated secondary to patient positioning, but could not exclude a mediastinal hematoma sta tus post central line placement. Recommend further characterization by CT chest. 3. No acute cardiopulmonary abnormality. Electronically signed by: Chuck Herbert MD 07/03/2023 03:36 AM CDT Due to temporary technical issues with the PACS/Fluency reporting system, reports are being signed by the in house radiologists without review as a courtesy to insure prompt reporting. The interpreting radiologist is fully responsible for the content of the report.
[2023-07-03 10:38] LABS: Platelet Estimate ADEQ; White Blood Cell Scan OK (OK)
[2023-07-03 10:39] LABS: Blood Morphology Comment NOTED (NOT SEEN); Hypochromasia 1+; Macrocytosis 1+; Polychromasia 1+
--- NOTE | 2023-07-03 10:54 | RAD REPORT ---
EXAM DESCRIPTION: CT - Abdomen Pelvis W Contrast - 07/03/2023 6:31 am CLINICAL HISTORY: 68 years, Female, abd fistula? fluid leaking from abd COMPARISON: None TECHNIQUE: Contrast-enhanced images of the abdomen and pelvis were performed utilizing 5 mm slice th ickness at 5 mm interval reconstruction from the lung bases to the ischial tuberosities after the adm inistration of IV contrast. In addition multiplanar reformats in the coronal and sagittal plane were obtained and reviewed. An individualized dose optimization technique, Automated Exposure Control, was utilized for the perfo rmed procedure. FINDINGS: Lung bases: The lung bases demonstrate to be clear. There is tiny air bowel/free air hemidiaphragm, anterior subcapsular aspect of the liver on axial olga ge 8-18. Liver: There is heterogeneous appearance of the liver with findings suspicious for diffuse fatty infi ltration. Gallbladder: Surgical clips within the gallbladder fossa corresponding to previous cholecystectomy. N o significant biliary duct dilatation. Adrenal glands: There is a left adrenal lesion measuring 13 mm with Hounsfield units of 53. Right adr enal gland is unremarkable. Pancreas: The pancreas demonstrate to be normal. Spleen: The spleen demonstrate to be within normal limits. Kidneys: The kidneys demonstrate normal uptake of contrast media. There is no evidence for nephroli thiasis and/or hydronephrosis. There are no significant cystic lesions. GI: Grossly the unopacified stomach demonstrate to be within normal limits. Findings suggest the possibility of changes mid small bowel. No evidence for bowel dilatation. There is anterior abdominal wall hernia containing fluid and minimal portions of the transverse colon . The appendix was not visualized. There is diverticulosis within the left side colon. : The urinary bladder demonstrate to be partially distended. Genitalia: The uterus is absent. There are no adnexal masses. Abdominal aorta: The aorta demonstrated presence of atherosclerotic disease extending into the aortic bifurcation and iliac arteries. Retroperitoneum: There is no retroperitoneal lymphadenopathy. Small trace of ascites subcapsular aspe ct of the liver and right paracolic gutter as well as within the region of the anterior abdominal wal l hernia. Bones: The bones demonstrate to be demineralized with grade 1 degenerative spondylolisthesis at L4/L5 . Soft tissues: Anterior abdominal wall hernia containing fluid and portions of the transverse colon an kle medication with skin. IMPRESSION: Anterior abdominal wall hernia containing fluid and portions of the transverse colon wit h findings suspicious for communication and to the skin/anterior abdominal wall. Small trace of ascites subcapsular aspect of the liver and right paracolic gutter as well as within t he region of the anterior abdominal wall hernia. Heterogeneous appearance of the liver with findings suspicious for diffuse fatty infiltration. 1.3 cm left adrenal mass, probable benign adenoma. Recommend follow-up adrenal washout CT in 1 year. If stable for \X2265\ 1 year, no further follow-up imaging. JACR 2016; 14(8):1038-44, JCAT 2015-Jul; 40(2):194-200, Urol J spring; 3(2):71-4. Atherosclerotic disease of the aorta. Status post cholecystectomy and hysterectomy. Diverticulosis. Grade 1 degenerative spondylolisthesis at L4/L5. Electronically signed by: Mukesh Avitia MD 07/02/2023 11:02 PM CDT Due to temporary technical issues with the PACS/Fluency reporting system, reports are being signed by the in house radiologists without review as a courtesy to insure prompt reporting. The interpreting radiologist is fully responsible for the content of the report.
[2023-07-03] MEDS ORDERED: Ringers Lactate 1,000 ML IV ONE (11:37)
[2023-07-03] MEDS ORDERED: POTASSIUM CL SA 10 MEQ TAB PO ONE (11:37)
--- NOTE | 2023-07-03 17:02 | EKG ---
Test Date: 2023-07-02 Test Time: 22:09:30 Ground Crew Linesman: DONOVAN MEASUREMENT RESULTS: Intervals: Rate: 113 UT: 148 QRSD: 138 QT: 380 QTc: 521 [place]: P: 71 UT: 148 QRS: 77 T: 52 INTERPRETIVE STATEMENTS: Sinus tachycardia Right bundle branch block Abnormal ECG No previous ECG available for comparison Electronically Signed On 07-03-23 17:00:00 CDT by Ady Lilly
[2023-07-03 19:56] VITALS: TEMP 99.6
[2023-07-03 20:25] VITALS: BP 134/75; O2SAT 93
== END 2023-07-03 19:06 | disposition short-term general hospital (02) ==
LOC: ER 19:55
DX: A41.9 Sepsis, unspecified organism (principal); R65.20 Severe sepsis without septic shock; K43.9 Ventral hernia without obstruction or gangrene; K70.31 Alcoholic cirrhosis of liver with ascites; F17.210 Nicotine dependence, cigarettes, uncomplicated
CPT/HCPCS: 93005; 87040 ×2; 85025; 36415; 85610; 83605; 85730; 83690; 80053; 74177; 71045; 76705; 99285; Q9967; J7030; J0696

== ENCOUNTER 2023-09-01 11:19 | Emergency (ER) | payer OTHER ==
[2023-09-01 12:43] LABS: Absolute Eosinophils 0.1 K/uL (0-0.5); Absolute Lymphocytes (CBC) 1.4 K/uL (0.7-4.9); Absolute Monocytes 0.8 K/uL (0.1-1.3); Absolute Neutrophil 3.4 K/uL (1.8-8.0); Basophils % 0.5 % (0-1.3); Eosinophils % 1.2 % (0-4.4); Hematocrit 31.2 % (36.0-45.0); Hemoglobin 10.2 g/dL (12.0-15.0); Lymphocytes % 25.3 % (15.3-44.8); MCH 33.7 pg (27.0-35.0); MCHC 32.9 g/dL (32.0-36.0); MCV 102.6 fL (80-100); MPV 7.9 fL (7.6-11.3); Monocytes % 13.5 % (3.3-12.3); Neutrophils % 59.5 % (41.7-73.7); Nucleated Red Blood Cells % 0.1 % (0-0); Platelets 253 thou/uL (152-406); RBC Red Blood Cell Count 3.04 M/uL (3.86-4.86)
[2023-09-01 12:48] LABS: PTT, Activated Partial Thromb 36.5 SECONDS (24.3-36.9); Protime INR 1.57
[2023-09-01 12:57] LABS: Albumin 1.7 g/dL (3.4-5.0); Albumin/Globulin Ratio 0.3 (1.1-1.8); Anion Gap 7.9 mEq/L (5.0-15.0); Bilirubin Total 1.3 mg/dL (0.2-1.0); Globulin 6.4 g/dL (2.3-3.5); Potassium 3.9 mEq/L (3.5-5.1); Protein, Total 8.1 g/dL (6.4-8.2)
--- NOTE | 2023-09-01 12:59 | RAD REPORT ---
EXAM DESCRIPTION: RAD - Chest Single View - 09/01/2023 12:52 pm CLINICAL HISTORY: DYSPNEA COMPARISON: Chest Single View dated 07/03/2023; Chest Pa And Lat (2 Views) dated 12/25/2016 FINDINGS: Lines: None. Lungs: No evidence of edema or pneumonia. Pleural: No significant pleural effusions or pneumothorax. Cardiac: The heart size is within normal limits. Mediastinum: Within normal limits. Bones: No acute fractures. Other: None IMPRESSION: No acute cardiopulmonary disease.
[2023-09-01] MEDS ORDERED: ALBUMIN HUMAN 25% 100 ML IV ONE (16:04)
--- NOTE | 2023-09-01 16:48 | ER ---
Nurse's Notes [facility] Name: Jacquelyn Saab Age: 68 yrs Sex: Female : 1955 Arrival Date: 09/01/2023 Time: 11:19 Bed 2 Private MD: Diagnosis: Alcoholic cirrhosis of liver with ascites Presentation: 08/31 11:44 Chief complaint: Patient states: abdominal swelling and SOB that has gotten worse over aa5 the last few weeks. Coronavirus screen: shortness of breath. Ebola Screen: Patient denies travel to an Ebola-affected area in the 21 days before illness onset. Initial Sepsis Screen: Does the patient meet any 2 criteria? No. Patient's initial sepsis screen is negative. Does the patient have a suspected source of infection? No. Patient's initial sepsis screen is negative. Risk Assessment: Do you want to hurt yourself or someone else? Patient reports no desire to harm self or others. Onset of symptoms was 2023. 11:44 Acuity: PIO 3 aa5 11:44 Method Of Arrival: Wheelchair aa5 Historical: - Allergies: 11:44 No Known Allergies; aa5 - PMHx: 11:44 ascites; cirrhosis of liver; aa5 - PSHx: 11:44 Appendectomy; section; Cholecystectomy; hernia repair; hysterectomy; aa5 - Immunization history:: Adult Immunizations unknown. - Infectious Disease History:: Denies. - Social history:: Smoking status: Patient denies any tobacco usage or history of. Screenin:11 [facility] ED Fall Risk Assessment (Adult) History of falling in the last 3 months, ld1 including since admission No falls in past 3 months (0 pts). Abuse screen: Denies threats or abuse. Denies injuries from another. Nutritional screening: No deficits noted. Tuberculosis screening: Assessment: 12:11 General: Appears in no apparent distress. comfortable, Behavior is calm, cooperative, ld1 appropriate for age. Pain: Denies pain. Neuro: Level of Consciousness is awake, alert, obeys commands, Oriented to person, place, time, situation. Cardiovascular: Capillary refill < 3 seconds Patient's skin is warm and dry. Respiratory: Airway is patent Respiratory effort is even, unlabored. GI: Abdomen is round distended, Bowel sounds present X 4 quads. Abd is soft Abd is non tender. GI: Reports bloating. : No signs and/or symptoms were reported regarding the genitourinary system. EENT: No signs and/or symptoms were reported regarding the EENT system. Derm: No signs and/or symptoms reported regarding the dermatologic system. Musculoskeletal: No signs and/or symptoms reported regarding the musculoskeletal system. 15:00 Reassessment: ERP at bedside providing care. ld1 15:19 Reassessment: Patient appears in no apparent distress at this time. No changes from ld1 previously documented assessment. Patient and/or family updated on plan of care and expected duration. Pain level reassessed. Vital Signs: 11:44 BP 116 / 81; Pulse 105; Resp 18 S; Temp 98.2(O); Pulse Ox 100% on R/A; aa5 12:11 BP 105 / 73; Pulse 83; Resp 18; Pulse Ox 100% on R/A; ld1 15:00 BP 118 / 74; Pulse 75; Resp 19; Pulse Ox 98% on R/A; hb 15:18 BP 120 / 88; Pulse 77; Resp 18; Pulse Ox 100% on R/A; ld1 16:00 BP 124 / 72; Pulse 76; Resp 17; Pulse Ox 97% on R/A; hb 16:38 BP 113 / 68; Pulse 70; Resp 18; Pulse Ox 98% on R/A; ld1 ED Course: 11:22 Patient arrived in ED. ts1 11:44 Arm band placed on. aa5 11:45 Triage completed. aa5 11:49 Andres De León PA is PHCP. jr8 11:49 Alexis Klein MD is Attending Physician. jr8 12:01 Radha Crain, PILI is Primary Nurse. nj1 12:11 Patient has correct armband on for positive identification. Placed in gown. Bed in low ld1 position. Call light in reach. Side rails up X2. air sampling and monitoring on. Pulse ox on. NIBP on. Door closed. Noise minimized. Warm blanket given. 12:11 Inserted saline lock: 20 gauge in right antecubital area, using aseptic technique. ld1 Blood collected. 12:54 Chest Single View XRAY In Process Unspecified. EDMS 13:02 Leonie Reese, PILI is Primary Nurse. ld1 15:30 Client placed on continuous cardiac and pulse oximetry monitoring. NIBP monitoring hb applied. air sampling and monitoring on. Pulse ox on. NIBP on. 16:34 Assisted provider with: Paracentesis. hb 16:57 IV discontinued, intact, bleeding controlled, No redness/swelling at site. ld1 Administered Medications: 16:19 Drug: Albumin IVPB 25 grams 100 ml IVPB once; (Note: Albumin 25% concentration) Volume: ld1 100 ml; Route: IVPB; Site: right antecubital; Medication: 12:11 VIS not applicable for this client. ld1 Outcome: 16:48 Discharge ordered by . melodie 16:57 Discharged to home ambulatory, ld1 16:57 Condition: stable 16:57 Discharge instructions given to patient, Instructed on discharge instructions, follow up and referral plans. Demonstrated understanding of instructions, follow-up care, 16:57 Patient left the ED. ld1 Signatures: Dispatcher [employer] EDMS Martina Saldivar RN RN aa5 Andres De León PA PA jr8 Susie Landon RN RN Leonie Reese RN RN ld1 Radha Crain RN RN nj1 Yenni Roca, RONALD PAS ts1 Corrections: (The following items were deleted from the chart) 16:48 15:00 BP 118 / 74; Pulse 75bpm; Resp 19bpm; Pulse Ox 98% RA; Temp 48.2F; hb hb
--- NOTE | 2023-09-01 16:48 | EDPHYS ---
Physician Documentation [facility] Name: Jacquelyn Saab Age: 68 yrs Sex: Female : 1955 Arrival Date: 09/01/2023 Time: 11:19 Bed 2 Private MD: ODIN Physician Alexis Klein HPI: 08/31 14:40 This 68 yrs old Female presents to ER via Wheelchair with complaints of Abdominal jr8 Swelling, Shortness Of Breath. 14:40 Onset: The symptoms/episode began/occurred gradually, 3 week(s) ago. The symptoms do jr8 not radiate. Associated signs and symptoms: none. The symptoms are described as vague. Severity of pain: At its worst the pain was mild in the emergency department the pain is unchanged. The patient has experienced a previous episode. The patient has not recently seen a physician. 14:41 Patient with history of ascites from alcoholic cirrhosis of the liver. Stated that she jr8 meets with transplant team this upcoming month. Stated that since she had hernia surgery has had increase in ascites. Now to the point where she is having difficulty with breathing upon ambulation and becomes lightheaded . Historical: - Allergies: 11:44 No Known Allergies; aa5 - PMHx: 11:44 ascites; cirrhosis of liver; aa5 - PSHx: 11:44 Appendectomy; section; Cholecystectomy; hernia repair; hysterectomy; aa5 - Immunization history:: Adult Immunizations unknown. - Infectious Disease History:: Denies. - Social history:: Smoking status: Patient denies any tobacco usage or history of. ROS: 14:41 Eyes: Negative for injury, pain, redness, and discharge, ENT: Negative for injury, jr8 pain, and discharge, Neck: Negative for injury, pain, and swelling, Cardiovascular: Negative for chest pain, palpitations, and edema, Back: Negative for injury and pain, MS/Extremity: Negative for injury and deformity, Skin: Negative for injury, rash, and discoloration, Neuro: Negative for headache, weakness, numbness, tingling, and seizure, 14:41 Respiratory: Positive for dyspnea on exertion, 14:41 Abdomen/GI: Positive for abdominal distension, Exam: 14:41 Constitutional: This is a well developed, well nourished patient who is awake, alert, jr8 and in no acute distress. Eyes: Pupils equal round and reactive to light, extra-ocular motions intact. Lids and lashes normal. Conjunctiva and sclera are non-icteric and not injected. Cornea within normal limits. Periorbital areas with no swelling, redness, or edema. Cardiovascular: Regular rate and rhythm with a normal S1 and S2. No gallops, murmurs, or rubs. Normal PMI, no JVD. No pulse deficits. Respiratory: Lungs have equal breath sounds bilaterally, clear to auscultation and percussion. No rales, rhonchi or wheezes noted. No increased work of breathing, no retractions or nasal flaring. Back: No spinal tenderness. No costovertebral tenderness. Full range of motion. Skin: Warm, dry with normal turgor. Normal color with no rashes, no lesions, and no evidence of cellulitis. MS/ Extremity: Pulses equal, no cyanosis. Neurovascular intact. Full, normal range of motion. Neuro: Awake and alert, GCS 15, oriented to person, place, time, and event. Motor strength 5/5 in all extremities. Sensory grossly intact. 14:41 Abdomen/GI: Inspection: distension, that is moderate, Bowel sounds: active, Palpation: nontender, in all quadrants, Tense ascites present , Vital Signs: 11:44 BP 116 / 81; Pulse 105; Resp 18 S; Temp 98.2(O); Pulse Ox 100% on R/A; aa5 12:11 BP 105 / 73; Pulse 83; Resp 18; Pulse Ox 100% on R/A; ld1 15:00 BP 118 / 74; Pulse 75; Resp 19; Pulse Ox 98% on R/A; hb 15:18 BP 120 / 88; Pulse 77; Resp 18; Pulse Ox 100% on R/A; ld1 16:00 BP 124 / 72; Pulse 76; Resp 17; Pulse Ox 97% on R/A; hb 16:38 BP 113 / 68; Pulse 70; Resp 18; Pulse Ox 98% on R/A; ld1 Procedures: 16:45 Paracentesis: The risks and benefits of the procedure were discussed with the patient jr8 or guardian in detail, aseptic technique was employed throughout the procedure, the catheter was placed in the left lower quadrant, appoximately 9 liters of fluid was removed, the fluid was serous, the patient tolerated the procedure well, the patient did not experience any apparent complications. MDM: 11:53 Patient medically screened. jr8 16:45 Differential diagnosis: obstruction, ascites, enteritis, colitis, pleural effusion, jr8 CHF. Data reviewed: vital signs, nurses notes, lab test result(s), and as a result, I will discharge patient. Consideration of Admission/Observation Escalation of care including admission/observation considered. Counseling: I had a detailed discussion with the patient and/or guardian regarding the historical points, exam findings, and any diagnostic results supporting the discharge/admit diagnosis, lab results, radiology results, the need for outpatient follow up, a family practitioner, a assistant to the director, to return to the emergency department if symptoms worsen or persist or if there are any questions or concerns that arise at home. Response to treatment: the patient's symptoms have markedly improved after treatment, and as a result, I will discharge patient. ED course: Discussed with patient that she needs to follow-up with hepatology for further evaluation of her cirrhosis. If she were to worsen or have acute changes come back to the emergency room. Patient understood and agreed with plan at this time.. 08/31 12:21 Order name: CBC with Diff; Complete Time: 12:46 08/31 12:21 Order name: CMP; Complete Time: 13:49 08/31 12:21 Order name: Lipase; Complete Time: 13:49 08/31 12:21 Order name: PT-INR; Complete Time: 13:49 08/31 12:21 Order name: Ptt, Activated; Complete Time: 13:49 08/31 12:21 Order name: Chest Single View XRAY; Complete Time: 13:49 08/31 12:21 Order name: IV Saline Lock; Complete Time: 12:28 08/31 12:21 Order name: Labs collected and sent; Complete Time: 12:28 Administered Medications: 16:19 Drug: Albumin IVPB 25 grams 100 ml IVPB once; (Note: Albumin 25% concentration) Volume: ld1 100 ml; Route: IVPB; Site: right antecubital; Disposition Summary: 09/01/23 16:48 Discharge Ordered Notes: Location: Home jr8 Problem: new jr8 Symptoms: have improved jr8 Condition: Stable jr8 Diagnosis - Alcoholic cirrhosis of liver with ascites jr8 Followup: jr8 - With: Private Physician - When: 5 - 6 days - Reason: Recheck today's complaints, Continuance of care, Re-evaluation by your physician Discharge Instructions: - Discharge Summary Sheet jr8 - Ascites jr8 - Cirrhosis jr8 - Paracentesis jr8 Forms: - Medication Reconciliation Form jr8 - Antibiotic Education jr8 - Prescription Opioid Use jr8 - Patient Portal Instructions jr8 - Leadership Thank You Letter jr8 Signatures: Dispatcher [employer] EDMS Martina Saldivar, RN RN aa5 Andres De León PA PA jr8 Leonie Reese RN RN ld1 Corrections: (The following items were deleted from the chart) 12:22 12:22 CBC+H.LAB.BRZ ordered. EDMS EDMS 12:22 12:22 COMPREHENSIVE METABOLIC PANEL+C.LAB.BRZ ordered. EDMS EDMS 12:22 12:22 LIPASE+C.LAB.BRZ ordered. EDMS EDMS 12:22 12:22 PROTIME (+INR)+COAG.LAB.BRZ ordered. EDMS EDMS 12:22 12:22 PTT, ACTIVATED+COAG.LAB.BRZ ordered. EDMS EDMS
[2023-09-01 17:15] VITALS: BP 113/68; TEMP 98.2; O2SAT 98
[2023-09-01 17:55] LABS: Body Fluid WBC 162 /mm^3
[2023-09-01 19:18] LABS: Body Fluid Source PERITONEAL; Tube # #1
[2023-09-01 19:19] LABS: Appearance CLEAR (CLEAR); Body Fluid Lymphocytes 62 %; Color of Supernate Not Xanthochromic (Not Xantho); Color of fluid Yellow (COLORLESS); Fluid Total Cells Count 100
--- NOTE | 2023-09-04 14:23 | EKG ---
Test Date: 2023-09-01 Test Time: 11:56:01 [place] [employer] Supervisor: ANTONIO MEASUREMENT RESULTS: Intervals: Rate: 90 AR: 160 QRSD: 88 QT: 390 QTc: 477 [place]: P: 69 AR: 160 QRS: 67 T: 75 INTERPRETIVE STATEMENTS: Normal sinus rhythm Low voltage QRS Borderline ECG Compared to ECG 07/02/2023 22:09:30 Low QRS voltage now present Sinus tachycardia no longer present Right bundle-branch block no longer present Electronically Signed On 09-04-23 14:14:37 CDT by Ady Lilly
[2023-09-06 19:44] LABS: GLUCOSE, PERITONEAL FLUID 86 mg/dL; LD, PERITONEAL FLUID 47 U/L (<63)
== END 2023-09-01 16:57 | disposition home or self-care (01) ==
LOC: ER 11:19
PROC: 0W9G3ZZ Drainage of Peritoneal Cavity, Percutaneous Approach (ICD-10-PCS; principal; 2023-09-01)
DX: K70.31 Alcoholic cirrhosis of liver with ascites (principal)
CPT/HCPCS: 93005; 85025; 36415; 89050; 83615; 85610; 82945; 85730; 83690; 80053; 71045; 96374; 99285; 49082; P9047

== ENCOUNTER 2023-11-26 08:49 | Day surgery (SDC) | payer OTHER ==
[2023-11-23 14:56] LABS: Absolute Eosinophils 0.1 K/uL (0-0.5); Absolute Lymphocytes (CBC) 1.3 K/uL (0.7-4.9); Absolute Monocytes 0.8 K/uL (0.1-1.3); Absolute Neutrophil 2.5 K/uL (1.8-8.0); Basophils % 0.4 % (0-1.3); Hemoglobin 9.8 g/dL (12.0-15.0); Lymphocytes % 27.3 % (15.3-44.8); MCHC 33.7 g/dL (32.0-36.0); MCV 98.1 fL (80-100); MPV 7.5 fL (7.6-11.3); Monocytes % 16.6 % (3.3-12.3); Neutrophils % 53.7 % (41.7-73.7); Platelets 234 thou/uL (152-406); RBC Red Blood Cell Count 2.96 M/uL (3.86-4.86); Red Cell Distribution Width 15.3 % (12.1-15.2)
[2023-11-23 15:02] LABS: Anion Gap 6.8 mEq/L (5.0-15.0); Potassium 3.8 mEq/L (3.5-5.1)
[2023-11-26] MEDS: Ringers Lactate 1,000 ML IV ONE (09:15)
[2023-11-26] MEDS ORDERED: dexAMETHasone 4 MG/ML VIAL ONE (09:33)
[2023-11-26] MEDS ORDERED: ROCURONIUM 50 MG/5 ML VIAL IV ONE (09:33)
[2023-11-26] MEDS ORDERED: ONDANSETRON 4 MG/2 ML VIAL ONE (09:33)
[2023-11-26] MEDS ORDERED: FENTANYL CITR 100 MCG/2 ML ONE (09:33)
[2023-11-26] MEDS ORDERED: propofoL 200 MG/20 ML VIAL IV ONE (09:33)
[2023-11-26] MEDS ORDERED: KETOROLAC 30 MG/ML INJ ONE (09:33)
[2023-11-26] MEDS ORDERED: LIDOCAINE 1% MPF 5 ML VIAL ONE (09:33)
[2023-11-26] MEDS ORDERED: MIDAZOLAM HCL 2 MG/2 ML INJ ONE (09:33)
[2023-11-26] MEDS: CEFAZOLIN SODIUM 1 GM/VIAL ONE (10:08)
--- NOTE | 2023-11-26 11:19 | P.BOP ---
Preoperative diagnosis: liver failure, ascites, multiple abdominal surgeries Postoperative diagnosis: same Primary procedure: Open Placement of tunneled intraperitoneal ascites drainage catheter Secondary procedure: Pleurx cath. Estimated blood loss: <10cc Specimen: none Findings: ascites, 6 lt removed, multiple abodminal adhesions Anesthesia: General Complications: None Transferred to: Recovery Room Condition: Good
[2023-11-26] MEDS: ONDANSETRON 4 MG/2 ML VIAL ONE (11:26)
[2023-11-26] MEDS: FENTANYL CITR 100 MCG/2 ML ONE (11:30)
[2023-11-26 14:19] VITALS: BP 98/62; TEMP 97.4; O2SAT 97
== END 2023-11-26 13:10 | disposition home or self-care (01) ==
LOC: OR 08:49
PROVIDERS: ATTEND Surgery
PROC: 0W9G00Z Drainage of Peritoneal Cavity with Drainage Device, Open Approach (ICD-10-PCS; 2023-11-26)
PROC: 0DNW0ZZ Release Peritoneum, Open Approach (ICD-10-PCS; principal; 2023-11-26 10:15)
DX: K70.31 Alcoholic cirrhosis of liver with ascites (principal); K72.90 Hepatic failure, unspecified without coma
CPT/HCPCS: 85025; 80048; 36415; 49418; 49329; J2704; J1100; J2001; J2250; J3010 ×2; J2405 ×2; J7120; J0690

== ENCOUNTER 2024-03-22 18:55 | Inpatient (IN) | payer OTHER ==
[2024-03-22] MEDS ORDERED: D50W 25 GM/50 ML SYRINGE IV ONE ×2 (18:57→20:02)
[2024-03-22] MEDS ORDERED: PANTOPRAZOLE 40 MG INJ ONE (19:38)
[2024-03-22] MEDS ORDERED: CEFTRIAXONE 1000 MG/VIAL ONE (19:38)
[2024-03-22 19:39] LABS: Absolute Basophils 0.1 K/uL (0-0.5); Absolute Eosinophils 3.3 K/uL (0-0.5); Absolute Lymphocytes (CBC) 1.3 K/uL (0.7-4.9); Absolute Monocytes 0.7 K/uL (0.1-1.3); Absolute Neutrophil 29.3 K/uL (1.8-8.0); Basophils % 0.2 % (0-1.3); Eosinophils % 9.4 % (0-4.4); Hematocrit 26.7 % (36.0-45.0); Hemoglobin 8.5 g/dL (12.0-15.0); Lymphocytes % 3.7 % (15.3-44.8); MCH 31.1 pg (27.0-35.0); MCHC 31.7 g/dL (32.0-36.0); MPV 7.7 fL (7.6-11.3); Monocytes % 1.9 % (3.3-12.3); Neutrophils % 84.8 % (41.7-73.7); Platelets 352 thou/uL (152-406); RBC Red Blood Cell Count 2.72 M/uL (3.86-4.86)
[2024-03-22] MEDS ORDERED: NA CHLORIDE 0.9% 2,000 ML ONE (19:39)
[2024-03-22 19:44] LABS: PT Prothrombin Time 27.1 SECONDS (9.4-12.5); Protime INR 2.48
[2024-03-22 19:57] LABS: Albumin 1.1 g/dL (3.4-5.0); Albumin/Globulin Ratio 0.2 (1.1-1.8); Anion Gap 17.7 mEq/L (5.0-15.0); Bilirubin Direct 1.1 mg/dL (0-0.2); Bilirubin Indirect, Calculated 0.4 mg/dL (0.2-0.8); Bilirubin Total 1.5 mg/dL (0.2-1.0); Magnesium 2.2 mg/dL (1.6-2.4); Potassium 4.7 mEq/L (3.5-5.1); Protein, Total 6.1 g/dL (6.4-8.2)
[2024-03-22] MEDS ORDERED: ALBUMIN HUMAN 25% 100 ML IV ONE (20:01)
[2024-03-22 20:03] LABS: Troponin High Sensitivity 94.2 pg/mL (<58.9)
--- NOTE | 2024-03-22 20:28 | RAD REPORT ---
EXAMINATION: ONE VIEW CHEST XR CLINICAL INDICATION: COUGH TECHNIQUE: Frontal chest projection is submitted. Examination is limited by patient positioning and t echnique. COMPARISON: 09/01/2023 FINDINGS: Moderate right-sided pleural effusion parenchymal opacification noted. Left lung is mildly emphysemat ous. The heart is upper limit of normal in size. No displaced fractures identified.
--- NOTE | 2024-03-22 20:41 | RAD REPORT ---
EXAM: CT brain without contrast HISTORY: WEAKNESS COMPARISON: None TECHNIQUE: Multiple contiguous axial images were obtained and a CT of the brain without contrast. Sag ittal and coronal reformats were performed. One or more of the following dose reduction techniques were used: Automated exposure control, adjust ment of the mA and/or kV according to patient size, and/or iterative reconstruction. FINDINGS: No evidence of hydrocephalus, intracranial hemorrhage, or extra-axial fluid collection. The brain is normal in morphology. No evidence of midline shift or areas of brain edema. The calvarium is intact. The visualized paranasal sinuses and mastoid air cells are essentially clear . IMPRESSION: No evidence of acute intracranial abnormality. EXAM: CT of the cervical spine without contrast HISTORY: Neck pain, injury WEAKNESS TECHNIQUE: Multiple contiguous axial images were obtained in a CT of the cervical spine without contr ast. Sagittal and coronal reformats were performed. FINDINGS: Mild motion degradation is present. The vertebral bodies demonstrate normal height and alig nment. No evidence of acute fracture or subluxation.. Mild lower cervical spondylosis. No prevertebral soft tissue swelling is seen. The posterior facets are well aligned. Normal alignment of the skull base with the cervical spine is seen. Left carotid atherosclerosis. The lung apices are unremarkable. IMPRESSION: No evidence of acute osseous abnormality of the cervical spine.
--- NOTE | 2024-03-22 20:54 | RAD REPORT ---
EXAM: CT CHEST, ABDOMEN AND PELVIS WITHOUT CONTRAST CLINICAL INDICATION: PAIN TECHNIQUE: CT chest, abdomen and pelvis was performed without contrast, as per department protocol. A xial, sagittal and coronal reconstructions were obtained. One or more of the following dose reduction techniques were used: Automated exposure control, adjustment of the mA and/or kV according to patient size, and/or iterative reconstruction. Unless otherwise specified, incidental findings do not require dedicated imaging follow-up. Examination is limited by the lack of intravenous contrast material. COMPARISON: 07/02/2023 FINDINGS: LUNGS: Mild consolidation is present in the right lower lobe with air bronchograms. Mild linear atele ctasis is present in the left base. PLEURA: Small bilateral pleural effusions. MEDIASTINUM AND LYMPH NODES: The esophagus appears distended with fluid. Moderate hiatal hernia. Calc ified mediastinal hilar lymph nodes are present. OSSEOUS STRUCTURES AND CHEST WALL: Intact. LIVER: Normal in size and contour. No focal lesion or biliary dilatation. Cholecystectomy clips. PANCREAS: No mass, ductal dilation, or annika-pancreatic fluid. SPLEEN: Normal size. No focal lesion. ADRENALS: Normal; no mass. KIDNEYS: Normal size and contour. No hydronephrosis. URINARY BLADDER: Normal contour. GASTROINTESTINAL TRACT: Moderate free fluid is seen in the abdomen. There is an abnormal rounded 8 cm lesion in the abdomen. The origin of this lesion is unclear could represent a bezoar. Fluid distention of the stomach and duodenal C-loop is present. Drainage catheter is present in the right l ower quadrant. APPENDIX: Nonvisualized. LYMPH NODES: No lymphadenopathy. MUSCULOSKELETAL: 9 mm anterolisthesis L4 on 5. OTHER: IMPRESSION: Airspace opacity in the right base associated with small right pleural effusion may be infectious/pne umonia. Unusual 8 cm lesion in the central abdomen is of unclear etiology and could be a very large large sto ol-filled diverticulum or a bezoar. Assessment on this study is quite limited by lack of IV and oral contrast. Moderate free fluid in the abdomen and pelvis. Moderate fluid distention of the stomach and duodenal C-loop.
[2024-03-22] MEDS ORDERED: NA CHLORIDE 0.9% 100 ML ONE (21:04)
[2024-03-22] MEDS ORDERED: NA CHLORIDE 0.9% 250 ML ONE (21:04)
[2024-03-22] MEDS ORDERED: VANCOMYCIN 1 GM/VIAL ONE (21:04)
[2024-03-22] MEDS ORDERED: Meropenem 1000 MG/VIAL IV ONE (21:04)
[2024-03-22] MEDS ORDERED: D5W 1,000 ML IV ONE (21:05)
[2024-03-22 21:20] LABS: Blood Morphology Comment NOT SEEN (NOT SEEN); Platelet Estimate ADEQ; White Blood Cell Scan OK (OK)
--- NOTE | 2024-03-22 21:36 | ER ---
Nurse's Notes [facility] Name: Jacquelyn Saab Age: 68 yrs Sex: Female : 1955 Arrival Date: 03/22/2024 Time: 18:55 Bed 2 Private MD: Diagnosis: Alcoholic cirrhosis of liver with ascites;Altered mental status, unspecified;Pneumonia due to other specified bacteria;Pleural effusion in other conditions classified elsewhere;Acute kidney failure, unspecified;Elevated white blood cell count;Anemia, unspecified;Encephalopathy, unspecified-HEPATIC;Non ST elevation MS;Do not resuscitate-FULL DNR/ COMFORT MEASURES ONLY;Hypoglycemia, unspecified Presentation: 03/22 19:08 Chief complaint: EMS states: found unresponsive by her in bed, EMS got a blood iw sugar of 17, gave 1 mg glucagon IM, unable to repeat sugar PTS, pt remains unresponsive but breathing. Coronavirus screen: At this time, the client does not indicate any symptoms associated with coronavirus-19. Ebola Screen: No symptoms or risks identified at this time. Initial Sepsis Screen: Does the patient meet any 2 criteria? RR > 20 per min. Systolic BP < 90 mmHg. HR > 90 bpm. Does the patient have a suspected source of infection? No. Patient's initial sepsis screen is negative. Risk Assessment: Do you want to hurt yourself or someone else? Patient reports no desire to harm self or others. Onset of symptoms was March 22, 2024. 19:08 Method Of Arrival: EMS: [facility] iw 19:08 Acuity: PIO 2 iw Historical: - Allergies: 20:54 Ativan; ha1 - PMHx: 19:11 ascites; cirrhosis of liver; iw - PSHx: 19:11 section; Appendectomy; Cholecystectomy; hernia repair; hysterectomy; iw - Immunization history:: Adult Immunizations unknown. - Infectious Disease History:: Denies. - Social history:: Smoking status: unknown. Screenin:52 [facility] ED Fall Risk Assessment (Adult) History of falling in the last 3 months, ha1 including since admission Yes- single mechanical fall (1 pt) Confusion or Disorientation Yes (5 pts) Intoxicated or Sedated No (0 pts) Impaired Gait Yes (1 pt) Mobility Assist Device Used Yes (1 pt) Altered Elimination Yes (1 pt) Score/Fall Risk Level 3 or more points = High Risk Oriented to surroundings, Maintained a safe environment, Educated pt \T\ family on fall prevention, incl call for assistance when getting out of bed, Hourly rounding (assess needs \T\ fall precautionary measures) done. Abuse screen: Denies threats or abuse. Denies injuries from another. Nutritional screening: No deficits noted. Tuberculosis screening: No symptoms or risk factors identified. Assessment: 19:05 General: Appears distressed, ill, malnourished, Behavior is flat, unresponsive. Pain: ha1 Unable to use pain scale. FLACC scale score is 0 out of 10. Neuro: Level of Consciousness is unresponsive, Oriented to none. Cardiovascular: Capillary refill < 3 seconds. Respiratory: Airway is patent Respiratory effort is labored, with retractions, Respiratory pattern is agonal tachypnea. GI: Abdomen is round distended, Parent/caregiver reports the patient having cirrhosis of liver , distended stomach do to fluid build up. : No signs and/or symptoms were reported regarding the genitourinary system. Derm: Skin is pale. Musculoskeletal: Range of motion: weak unable to move extremities. 19:06 General: Dr. Klein in the room . ha1 20:05 Reassessment: Patient and/or family updated on plan of care and expected duration. Pain ha1 level reassessed. 20:05 General: Behavior is unresponsive. Neuro: Level of Consciousness is unresponsive, ha1 Oriented to none. Vital Signs: 19:08 BP 73 / 41; Pulse 107; Resp 24 S; Temp 96.8; Pulse Ox 94% on Non-rebreather mask; iw 19:30 BP 72 / 45; Pulse 116; Resp 22 S; Pulse Ox 97% on 15 lpm NC; Weight 59.87 kg; ha1 20:34 BP 116 / 55; Pulse 130; Resp 31 S; Pulse Ox 85% on 15 lpm Non-rebreather mask; ha1 20:42 BP 87 / 70; Pulse 113; Resp 29 S; Pulse Ox 89% on 15 lpm Non-rebreather mask; ha1 21:30 BP 94 / 58; Pulse 104; Resp 19 S; Pulse Ox 98% on 15 lpm Non-rebreather mask; ha1 23:05 BP 90 / 59; Pulse 112; Resp 28 S; Pulse Ox 98% on 15 lpm Non-rebreather mask; ha1 23:40 BP 92 / 59; Pulse 110; Resp 28 S; Pulse Ox 99% on 15 lpm Non-rebreather mask; ha1 ED Course: 18:50 Inserted saline lock: 20 gauge in right forearm, using aseptic technique. Flushed with iw 10 mL NS. 18:55 Patient arrived in ED. ko1 18:58 Denis Kaur, RN is Primary Nurse. bp 19:02 Alexis Klein MD is Attending Physician. conrado 19:05 Patient has correct armband on for positive identification. Bed in low position. Call ha1 light in reach. Side rails up X2. Adult w/ patient. 19:05 Provided Education on: education provided to family members on the plan of care . ha1 19:11 Triage completed. iw 19:11 Arm band placed on. iw 19:25 Inserted saline lock: 24 gauge in right antecubital area, using aseptic technique. ha1 Blood collected. Flushed with 10 mL NS. 19:32 AMMONIA Sent. ha1 19:32 Lipase Sent. ha1 19:32 Lactate w/ 2H reflex if indic. Sent. ha1 19:32 Blood Culture Adult (2) Sent. ha1 19:32 Basic Metabolic Panel Sent. ha1 19:32 CBC with Diff Sent. ha1 19:32 LFT's Sent. ha1 19:32 Magnesium Sent. ha1 19:32 NT PRO-BNP Sent. ha1 19:32 PT-INR Sent. ha1 19:32 Troponin HS Sent. ha1 19:35 EKG done, by ED staff, reviewed by Alexis Klein MD. ty 20:20 XRAY Chest (1 view) In Process Unspecified. EDMS 20:26 CT Chest Abdomen Pelvis W/O Contrast In Process Unspecified. EDMS 20:35 Head C Spine Mpr Wo Con In Process Unspecified. EDMS 21:30 Cristal Topete MD is Hospitalizing Provider. conrado 23:00 Fung cath inserted, using sterile technique, 16 Fr., by director of provider relations, balloon inflated, to ha1 gravity drainage, urine specimen collected. 03/23 00:21 No provider procedures requiring assistance completed. Patient admitted, IV remains in cp4 place. Administered Medications: 03/22 19:00 Drug: D50W IVP 50 ml IVP once; (1 amp) Route: IVP; Site: right forearm; iw 20:00 Follow up: Response: No adverse reaction; Blood sugar is elevated [facility] 19:45 Drug: NS 0.9% IV (30 ml/kg) 30 ml/kg IV at bolus once; Sepsis Protocol; to be given as [facility] a bolus over 90 minutes Route: IV; Rate: bolus; Site: right forearm; 23:00 Follow up: Response: No adverse reaction; IV Status: Completed infusion; IV Intake: ha1 1796.1ml 19:45 Drug: Pantoprazole IVP 40 mg IVP once Route: IVP; Site: right forearm; ha1 20:30 Follow up: Response: No adverse reaction [facility] 19:52 Drug: Rocephin IV 1 grams IV at per protocol once; Given slow IV push per pharmacy 1 instructions Route: IV; Rate: per protocol; Site: right antecubital; 20:15 Follow up: Response: No adverse reaction; IV Status: Completed infusion; IV Intake: [id number] 19:58 Drug: D50W IVP 50 ml IVP once; (1 amp) Route: IVP; Site: right forearm; 1 21:45 Follow up: Response: No adverse reaction; Blood sugar is elevated 1 20:00 Drug: Albumin IVPB 25 grams 100 ml IVPB once; (Note: Albumin 25% concentration) Volume: ha1 100 ml; Route: IVPB; Site: right forearm; 21:00 Follow up: Response: No adverse reaction; IV Status: Completed infusion; IV Intake: ha1 100ml 21:23 Drug: D5W IV 1000 ml IV at 125 ml/hr continuous Route: IV; Rate: 125 ml/hr; Site: right ha1 forearm; 03/23 00:22 Follow up: Response: No adverse reaction; IV Status: Infusion continued upon admission [facility] 03/22 21:23 Drug: Meropenem IV 1 grams IV at per protocol once; (mix in NS 100 mL) Route: IV; Rate: ha1 per protocol; Site: right antecubital; 22:45 Follow up: Response: No adverse reaction; IV Status: Completed infusion 1 23:41 Drug: vancoMYCIN IVPB 1 grams IVPB once over 2 hrs Route: IVPB; Infused Over: 2 hrs; 1 Site: right antecubital; 03/23 00:21 Follow up: Response: No adverse reaction; IV Status: Infusion continued upon admission ha1 Medication: 00:15 VIS not applicable for this client. ha1 00:21 VIS not applicable for this client. cp4 Intake: 03/22 20:15 IV: 50ml; Total: 50ml. ha1 21:00 IV: 100ml; Total: 150ml. ha1 23:00 IV: 1796ml; Total: 1946ml. ha1 Outcome: 21:35 Decision to Hospitalize by Provider. [facility] 03/23 00:15 critical ha1 00:15 Admitted to Med/surg accompanied by tech, via stretcher, room 228, with oxygen, with ha1 chart, 00:15 Instructed on the need for admit, 00:21 Admitted to Med/surg accompanied by tech, via stretcher, with oxygen, with chart, cp4 00: Condition: stable 00:21 Instructed on the need for admit, 00:22 Patient left the ED. cp4 Signatures: Dispatcher [employer] EDAlexis ePrez MD MD cha Williams, Irene, RN RN iw Peltier, Brian, RN RN bp Ayala, Heidy, RN RN Sheila Santos RN RN ko1 Potter, Christina cp4 Triston Hollis Corrections: (The following items were deleted from the chart) 03/22 20:35 20:26 In radiology for Chest Abdomen Pelvis W Cont. [facility]
--- NOTE | 2024-03-22 21:36 | EDPHYS ---
Physician Documentation [facility] Name: Jacquelyn Saab Age: 68 yrs Sex: Female : 1955 Arrival Date: 03/22/2024 Time: 18:55 Bed 2 Private MD: ED Physician Alexis Klein HPI: 03/22 19:12 This 68 yrs old Female presents to ER via EMS with complaints of Low Blood conrado Sugar, Unresponsive. 19:12 The patient or guardian reports. Onset: The symptoms/episode began/occurred just prior conrado to arrival. Associated signs and symptoms: Pertinent positives: clammy, low blood glocose, FAMILY STATED TO BE DNR. Current symptoms: In the emergency department the patient's symptoms are unchanged from the initial presentation, despite EMS interventions. The patient has experienced similar episodes in the past, multiple times. Historical: - Allergies: 20:54 Ativan; ha1 - PMHx: 19:11 ascites; cirrhosis of liver; iw - PSHx: 19:11 section; Appendectomy; Cholecystectomy; hernia repair; hysterectomy; iw - Immunization history:: Adult Immunizations unknown. - Infectious Disease History:: Denies. - Social history:: Smoking status: unknown. ROS: 19:14 Unable to obtain ROS due to obtunded state, patient being uncooperative, conrado Exam: 19:14 Eyes: Pupils: no acute changes, conrado 19:14 Cardiovascular: Rate: tachycardic, actual rate is 107 bpm, Rhythm: regular, Pulses: Pulses are 1+ in bilateral radial, brachial, femoral, popliteal, posterior tibial and and dorsalis pedis arteries.. Heart sounds: normal, Edema: is not appreciated, JVD: is not appreciated, 19:14 Skin: Appearance: Color: jaundiced, pale, ecchymosis, noted on the, chest, diaphoresis is noted, 19:14 Neuro: Orientation: Not oriented to person, place, time, situation, FRIEND IN ROOM REPORTED TO BE DNR, Vital Signs: 19:08 BP 73 / 41; Pulse 107; Resp 24 S; Temp 96.8; Pulse Ox 94% on Non-rebreather mask; iw 19:30 BP 72 / 45; Pulse 116; Resp 22 S; Pulse Ox 97% on 15 lpm NC; Weight 59.87 kg; ha1 20:34 BP 116 / 55; Pulse 130; Resp 31 S; Pulse Ox 85% on 15 lpm Non-rebreather mask; ha1 20:42 BP 87 / 70; Pulse 113; Resp 29 S; Pulse Ox 89% on 15 lpm Non-rebreather mask; ha1 21:30 BP 94 / 58; Pulse 104; Resp 19 S; Pulse Ox 98% on 15 lpm Non-rebreather mask; ha1 23:05 BP 90 / 59; Pulse 112; Resp 28 S; Pulse Ox 98% on 15 lpm Non-rebreather mask; ha1 23:40 BP 92 / 59; Pulse 110; Resp 28 S; Pulse Ox 99% on 15 lpm Non-rebreather mask; ha1 MDM: 19:02 Medical Screening Exam initiated conrado 19:18 Differential diagnosis: DKA, hypoglycemic episode, myxedema coma, new onset diabetes. conrado Differential Diagnosis altered mental status, sepsis, flu. Differential Diagnosis: CVA, electrolyte abnormality, alcohol intoxication, hypoglycemia, intracranial bleed, meningitis, overdose, pneumonia, seizure, sepsis, TIA, UTI, volume depletion. Data reviewed: vital signs, nurses notes. Consideration of Admission/Observation Patient was admitted/placed on observation. Escalation of care including admission/observation considered. I considered the following discharge prescriptions or medication management in the emergency department Medications were administered in the Emergency Department. See MAR. Independent interpretation of the following test(s) in the Emergency Department EKG: See my EKG interpretation above. Test considered but Not performed: MRI: NO MRI BRAIN. Historians other than the Patient: Family Member: FRIEND , . Care significantly affected by the following chronic conditions: ASCITES, CIRRHOSIS. Post IV fluid administration reassessment for Sepsis: Client prescribed 30 mL/kg IVF. Sepsis focused reassessment complete. Counseling: I had a detailed discussion with the patient and/or guardian regarding the historical points, exam findings, and any diagnostic results supporting the discharge/admit diagnosis, lab results, radiology results. 03/22 19:11 Order name: Basic Metabolic Panel; Complete Time: 20:[address] [facility] 03/22 19:11 Order name: CBC with Diff; Complete Time: 21:[address] [facility] 03/22 19:11 Order name: LFT's; Complete Time: 20:[address] [facility] 03/22 19:11 Order name: Magnesium; Complete Time: 20:[address] [facility] 03/22 19:11 Order name: NT PRO-BNP; Complete Time: 20:[address] [facility] 03/22 19:11 Order name: PT-INR; Complete Time: 20:[address] [facility] 03/22 19:11 Order name: Troponin HS; Complete Time: 20:[address] [facility] 03/22 19:11 Order name: Blood Culture Adult (2) [facility] 03/22 19:11 Order name: Lactate w/ 2H reflex if indic.; Complete Time: 20:[address] [facility] 03/22 19:11 Order name: Lipase; Complete Time: 20:[address] [facility] 03/22 19:11 Order name: Urinalysis w/ reflexes [facility] 03/22 19:11 Order name: AMMONIA; Complete Time: 20:[address] [facility] 03/22 19:12 Order name: Glucose, Ancillary Testing [facility] 03/22 20:06 Order name: Ghost Lactate-NO COLLECT Timer [facility] 03/22 20:18 Order name: Glucose, Ancillary Testing; Complete Time: 20:48 [facility] 03/22 21:21 Order name: CBC Smear Scan; Complete Time: 21:23 [facility] 03/22 22:41 Order name: CBC with Automated Diff [facility] 03/22 22:41 Order name: CBC with Automated Diff [facility] 03/22 22:42 Order name: Comprehensive Metabolic Panel [facility] 03/22 22:42 Order name: Comprehensive Metabolic Panel [facility] 03/22 22:42 Order name: Troponin High Sensitivity [facility] 03/22 22:42 Order name: Troponin High Sensitivity [facility] 03/22 22:42 Order name: Troponin High Sensitivity [facility] 03/22 22:42 Order name: Troponin High Sensitivity [facility] 03/23 00:00 Order name: Glucose, Ancillary Testing [facility] 03/22 19:11 Order name: XRAY Chest (1 view); Complete Time: 20:[address] [facility] 03/22 19:11 Order name: CT Chest Abdomen Pelvis W/O Contrast; Complete Time: 21:[address] [facility] 03/22 20:35 Order name: Head C Spine Mpr Wo Con; Complete Time: 20:48 [facility] 03/22 22:42 Order name: Abdomen 1 View (KUB) [facility] 03/22 21:54 Order name: Social Service Consult [facility] 03/22 19:11 Order name: Cardiac monitoring; Complete Time: 19:[address] [facility] 03/22 19:11 Order name: EKG - Nurse/Tech; Complete Time: 19:[address] [facility] 03/22 19:11 Order name: IV Saline Lock; Complete Time: 19:[address] [facility] 03/22 19:11 Order name: Labs collected and sent; Complete Time: 19:[address] [facility] 03/22 19:11 Order name: O2 Per Protocol; Complete Time: 19:[address] [facility] 03/22 19:11 Order name: O2 Sat Monitoring; Complete Time: 19:[address] [facility] 03/22 19:11 Order name: IV Saline Lock - Large Bore; Complete Time: 20:[address] [facility] 03/22 20:53 Order name: Fung; Complete Time: 23:[address] [facility] Administered Medications: 19:00 Drug: D50W IVP 50 ml IVP once; (1 amp) Route: IVP; Site: right forearm; iw 20:00 Follow up: Response: No adverse reaction; Blood sugar is elevated ha1 19:45 Drug: NS 0.9% IV (30 ml/kg) 30 ml/kg IV at bolus once; Sepsis Protocol; to be given as ha1 a bolus over 90 minutes Route: IV; Rate: bolus; Site: right forearm; 23:00 Follow up: Response: No adverse reaction; IV Status: Completed infusion; IV Intake: ha1 1796.1ml 19:45 Drug: Pantoprazole IVP 40 mg IVP once Route: IVP; Site: right forearm; ha1 20:30 Follow up: Response: No adverse reaction ha1 19:52 Drug: Rocephin IV 1 grams IV at per protocol once; Given slow IV push per pharmacy ha1 instructions Route: IV; Rate: per protocol; Site: right antecubital; 20:15 Follow up: Response: No adverse reaction; IV Status: Completed infusion; IV Intake: [id number] 19:58 Drug: D50W IVP 50 ml IVP once; (1 amp) Route: IVP; Site: right forearm; ha1 21:45 Follow up: Response: No adverse reaction; Blood sugar is elevated ha1 20:00 Drug: Albumin IVPB 25 grams 100 ml IVPB once; (Note: Albumin 25% concentration) Volume: ha1 100 ml; Route: IVPB; Site: right forearm; 21:00 Follow up: Response: No adverse reaction; IV Status: Completed infusion; IV Intake: ha1 100ml 21:23 Drug: D5W IV 1000 ml IV at 125 ml/hr continuous Route: IV; Rate: 125 ml/hr; Site: right ha1 forearm; 03/23 00:22 Follow up: Response: No adverse reaction; IV Status: Infusion continued upon admission [facility] 03/22 21:23 Drug: Meropenem IV 1 grams IV at per protocol once; (mix in NS 100 mL) Route: IV; Rate: ha1 per protocol; Site: right antecubital; 22:45 Follow up: Response: No adverse reaction; IV Status: Completed infusion 1 23:41 Drug: vancoMYCIN IVPB 1 grams IVPB once over 2 hrs Route: IVPB; Infused Over: 2 hrs; ha1 Site: right antecubital; 03/23 00:21 Follow up: Response: No adverse reaction; IV Status: Infusion continued upon admission ha1 Disposition Summary: 03/22/24 21:35 Hospitalization Ordered Notes: Hospitalization Status: Inpatient Admission conrado Provider: Cristal Topete cha [facility] conrado Condition: Serious conrado Problem: an acute exacerbation conrado Symptoms: have worsened conrado Bed/Room Type: Standard [facility] Room Assignment: 228(03/22/24 23:08) lg3 Diagnosis - Alcoholic cirrhosis of liver with ascites conrado - Altered mental status, unspecified conrado - Pneumonia due to other specified bacteria conrado - Pleural effusion in other conditions classified elsewhere conrado - Acute kidney failure, unspecified conrado - Elevated white blood cell count conrado - Anemia, unspecified conrado - Encephalopathy, unspecified - HEPATIC conrado - Non ST elevation NC conrado - Do not resuscitate - FULL DNR/ COMFORT MEASURES ONLY conrado - Hypoglycemia, unspecified conrado Forms: - Medication Reconciliation Form conrado - SBAR form conrado - Leadership Thank You Letter conrado Signatures: Dispatcher [employer] EDAlexis Perez MD MD cha Williams, Irene RN Sandy Hernandez RN RN lg3 Jen Priest RN RN ha1 Carisa Garcia 4 Corrections: (The following items were deleted from the chart) 03/22 19:12 19:12 BASIC METABOLIC PANEL+C.LAB.BRZ ordered. EDMS EDMS 19:12 19:12 CBC+H.LAB.BRZ ordered. EDMS EDMS 19:12 19:12 HEPATIC FUNCTION+C.LAB.BRZ ordered. EDMS EDMS 19:12 19:12 MAGNESIUM+C.LAB.BRZ ordered. EDMS EDMS 19:12 19:12 PROBNP+C.LAB.BRZ ordered. EDMS EDMS 19:12 19:12 PROTIME (+INR)+COAG.LAB.BRZ ordered. EDMS EDMS 19:12 19:12 Troponin High Sensitivity+C.LAB.BRZ ordered. EDMS EDMS 19:12 19:12 BLOOD CULTURE*+BA.LAB.BRZ ordered. EDMS EDMS 19:12 19:12 LACTATE+C.LAB.BRZ ordered. EDMS EDMS 19:12 19:12 LIPASE+C.LAB.BRZ ordered. EDMS EDMS 19:12 19:12 Urinalysis+U.LAB.BRZ ordered. EDMS EDMS 19:12 19:12 AMMONIA+C.LAB.BRZ ordered. EDMS EDMS 19:12 19:12 Head C Spine MPR Wo Con+CT.RAD.BRZ ordered. EDMS EDMS 19:12 19:12 Chest Abdomen Pelvis Wo Con+CT.RAD.BRZ ordered. EDMS EDMS 20:35 20:26 Chest Abdomen Pelvis W Cont ordered. EDMS EDMS 23:08 21:35 conrado lg3
--- NOTE | 2024-03-22 21:52 | P.HP ---
Certification for Inpatient With expected LOS: >2 Midnights Patient will require the following post-hospital care: Hospice Practitioner: I am a practitioner with admitting privileges, knowledge of patient current condition, hospital course, and medical plan of care. Services: Services provided to patient in accordance with Admission requirements found in Title 42 Section 412.3 of the Code of Federal Regulations Patient History Date of Service: 03/22/24 Reason for admission: Unresponsiveness History of Present Illness: 68-year-old female past medical history of alcoholic liver cirrhosis, recurrent ascites, status post ventral wall rupture due to indwelling ascites status post manage and underwent surgery at [facility] 6 months ago, subsequently had Pleurx drain placed yeah 4 months ago since then patient has not been seen any physician. She has previously been referred to liver transplant but stopped going since then. As per spouse she takes multivitamin Nepro as well as oxycodone at home. Since the last couple of days she has been having decreased p.o. intake and more progressively lethargic. She was brought in by the family today after being found unresponsive. Glucose was reportedly low at less than 20 by EMS. Patient was transferred to the hospital. On arrival in the ED patient continued to remain unresponsive despite IV dextrose that was given as well as glucagon. Patient received IV fluid boluses with improvement in blood pressure from 80s over 40s to initial 100 over 40s but then again trending down to 70s over 50s. He also received meropenem. Chest x-ray shows right pneumonia. CT of the chest and abdomen shows evidence of right lower lobe infiltrate with pleural effusion, possible PE as well in the lower abdomen, drainage catheter in the right lower quadrant, laboratory workup shows WBC of greater than 24,000, hemoglobin of 8.5, troponin elevated at 94, creatinine of 2.33, proBNP greater than 6000, ammonia markedly elevated at 144. Family requesting comfort care measures alone. They do not want any intervention anymore done. Patient still continues to be unresponsive Allergies lorazepam [From Ativan] Allergy (Verified 11/23/23 14:30) combative Home Medications: D3/Red Wine/Resveratrol/Malt [Super-D3+ Softgel] 1 each PO DAILY 11/23/23 Famotidine [Pepcid] 20 mg PO BID 11/23/23 Folic Acid/Vit B Complex and C [Nephro Vitamins Tablet] 1 tab PO DAILY 11/23/23 Hydrocodone Bit/Acetaminophen [Hydrocodon-Acetaminophen 5-325] 1 each PO Q6H PRN 11/23/23 Thiamine Mononitrate (Vit B1) [Vitamin B1] 100 mg PO DAILY 11/23/23 - Past Medical/Surgical History -: Liver cirrhosis -: Hiatal hernia -: Cholecystectomy -: Hernia repair -: Appendectomy -: section -: Hysterectomy - Social History Smoking Status: Unknown if ever smoked Patient receptive to therapy: No Alcohol use: No CD- Drugs: No Caffeine use: No Physical Examination - Physical Exam General: Unresponsive HEENT: Atraumatic, Normocephalic Neck: 2+ carotid pulse no bruit, JVD not distended Respiratory: Clear to auscultation bilaterally, Normal air movement Cardiovascular: Normal pulses, Regular rate/rhythm, Normal S1 S2 Gastrointestinal: Normal bowel sounds, Soft and benign, Non-distended, No tenderness, Other (Right lower quadrant drain catheter) Musculoskeletal: No clubbing, No swelling Neurological: Abnormal sensation, Abnormal cranial nerve function - Studies Laboratory Data (last 24 hrs) 03/22/24 03/22/24 03/22/24 19:21 19:21 19:21 WBC 34.60 H Hgb 8.5 L Hct 26.7 L Plt Count 352 PT 27.1 H INR 2.48 Sodium 133 L Potassium 4.7 BUN 29 H Creatinine 2.33 H Glucose 123 H Magnesium 2.2 Total Bilirubin 1.5 H AST 62 H ALT 18 Alkaline Phosphatase 105 Lipase 14 Assessment and Plan - Plan Impression Septic shock Hypoglycemia Hyperammonia anemia Metabolic/hepatic encephalopathy Non-STEMI with elevated troponin Fluid overload with pleural effusion Right lower lobe pneumonia Acute kidney failure History of liver cirrhosis with recurrent ascites Plan Will admit patient to hospital Spouse initially requesting comfort care, Will place on hospice/comfort care measures Comfort hospice team in a.m. IV morphine as needed Comfort measures only for now as per family request DNR/DNI After discussion again with spouse/POA about high ammonia level, he is agreeable to lactulose NG tube placement antibiotics and IV fluid for now but no heroic or cardiac intervention. We will place NG tube and start lactulose dosage since marked elevated ammonia level Start D5 NS for now No aggressive intervention. Will continue with antibiotics until accepted to hospice Obtain peritoneal fluid for culture and sensitivity for possible Blood culture x 2 Meropenem antibiotics 1 g Q8 Neurochecks Q2 Glucose check every hour for now Monitor troponin level, no intervention for now Total time spent in the evaluation as well as discussion with spouse, family including son and [id number] at bedside greater than 80 minutes. - Advance Directives Does patient have a Living Will: No Does patient have a Durable POA for Healthcare: No Time Spent Managing Pts Care (In Minutes): 80
[2024-03-22] MEDS ORDERED: LACTULOSE 20 GM/30 ML UCUP PO SCH (22:00)
[2024-03-22] MEDS ORDERED: D5LR 1,000 ML IV SCH (22:00)
[2024-03-22] MEDS ORDERED: ONDANSETRON 4 MG/2 ML VIAL IV PRN (22:38)
[2024-03-22] MEDS ORDERED: ALBUTEROL 2.5 MG/3 ML NEB SOL NEB PRN (22:38)
[2024-03-22] MEDS ORDERED: SODIUM CHLORIDE 0.9% 10ML INJ IV PRN (22:39)
[2024-03-22] MEDS ORDERED: LACTULOSE 20 GM/30 ML UCUP NG SCH (23:00)
[2024-03-23 00:34] LABS: Specific Gravity 1.021 (1.005-1.030); Urine Bacteria 20-50 /HPF (<20); Urine Bilirubin NEGATIVE (Negative); Urine Blood 3+ (OVER) (Negative); Urine Clarity Extremely Turbid (Clear); Urine Color Orange (Yellow); Urine Crystals Unidentified Few /HPF (None Seen); Urine Culture Reflex Order REFLEXED; Urine Glucose NEGATIVE (Negative); Urine Ketones NEGATIVE (Negative); Urine Microscopic Reflex YN ORDER UMIC; Urine Mucus 3+ /HPF (None Seen); Urine Nitrite NEGATIVE (Negative); Urine Protein 1+ (Negative); Urine RBC 21-50 /HPF (None Seen); Urine Urobilinogen 2+ (Normal); Urine WBC 20-50 /HPF (<5); Urine pH 5.5 (5.0-7.0)
[2024-03-23 01:32] VITALS: BMI 20.8
[2024-03-23] MEDS: D10W 125 ML IV PRN (02:21)
[2024-03-23] MEDS: D5LR 1,000 ML IV SCH (02:22)
[2024-03-23] MEDS: ALBUMIN HUMAN 25% 200 ML IV ONE (02:32)
[2024-03-23 04:13] VITALS: BP 96/44; TEMP 97.4
[2024-03-23 06:21] LABS: Absolute Basophils 0.1 K/uL (0-0.5); Absolute Eosinophils 1.4 K/uL (0-0.5); Absolute Lymphocytes (CBC) 2.9 K/uL (0.7-4.9); Absolute Neutrophil 23.1 K/uL (1.8-8.0); Basophils % 0.3 % (0-1.3); Eosinophils % 4.7 % (0-4.4); Hemoglobin 7.5 g/dL (12.0-15.0); Lymphocytes % 9.6 % (15.3-44.8); MCH 31.2 pg (27.0-35.0); MCHC 29.9 g/dL (32.0-36.0); MCV 104.1 fL (80-100); MPV 7.3 fL (7.6-11.3); Monocytes % 9.9 % (3.3-12.3); Neutrophils % 75.5 % (41.7-73.7); Nucleated Red Blood Cells % 0.1 % (0-0); Platelets 311 thou/uL (152-406); Red Cell Distribution Width 18.4 % (12.1-15.2)
--- NOTE | 2024-03-23 06:31 | RAD REPORT ---
EXAM: XR Abdomen, 1 View CLINICAL HISTORY: The patient is 68 years old and is Female; NGT post insertion TECHNIQUE: Frontal supine view of the abdomen/pelvis. COMPARISON: No relevant prior studies available. FINDINGS: GASTROINTESTINAL TRACT: There is a relative paucity of bowel gas within the visualized abdomen. BONES/JOINTS: Degenerative change of the spine is present. No acute fracture. TUBES, LINES AND DEVICES: An enteric tube is present with the tip in the proximal stomach. IMPRESSION: An enteric tube is present with the tip in the proximal stomach. Electronically signed by: Alexandra Haney MD 03/23/2024 02:34 AM [facility] Due to temporary technical issues with the PACS/[employer] reporting system, reports are being pedro d by the in-house radiologist without review as a courtesy to ensure prompt reporting the interpreting radiologist is fully responsible for the content of the report. Transcribed Date/Time: 03/23/2024 6:30 AM
[2024-03-23 07:30] LABS: Albumin 1.4 g/dL (3.4-5.0); Albumin/Globulin Ratio 0.4 (1.1-1.8); Anion Gap 23.3 mEq/L (5.0-15.0); Bilirubin Total 1.5 mg/dL (0.2-1.0); Potassium 5.3 mEq/L (3.5-5.1); Protein, Total 5.4 g/dL (6.4-8.2)
[2024-03-23 07:32] LABS: Troponin High Sensitivity 124.9 pg/mL (<58.9)
[2024-03-23 08:30] LABS: Band Neutrophils 8 % (0-1); Differential Total Cells Count 100; Lymphocytes 12 % (15-42); Monocytes 12 % (0-10); Segmented Neutrophils 61 % (40-80)
[2024-03-23 08:31] LABS: Blood Morphology Comment NOTED (NOT SEEN); Burr Cells 1+; Metamyelocytes 2 % (0-0); Myelocytes 5 % (0-0); Platelet Estimate ADEQ; Polychromasia 1+
[2024-03-23] MEDS ORDERED: Meropenem 1,000 MG in NA CHLORIDE 0.9% 100 ML IV SCH (09:00)
[2024-03-23] MEDS ORDERED: PANTOPRAZOLE 40 MG INJ IVP SCH (09:00)
[2024-03-23 12:25] VITALS: O2SAT 60
--- NOTE | 2024-03-25 12:05 | EKG ---
Test Date: 2024-03-22 Test Time: 19:30:30 Career Services Representative: CONSUELO MEASUREMENT RESULTS: Intervals: Rate: 116 OH: 144 QRSD: 120 QT: 352 QTc: 489 [place]: P: 48 OH: 144 QRS: 65 T: 49 INTERPRETIVE STATEMENTS: Sinus tachycardia Low voltage QRS Right bundle branch block Abnormal ECG Compared to ECG 09/01/2023 11:56:01 Right bundle-branch block now present Sinus rhythm no longer present Electronically Signed On 03-25-24 12:03:21 LEAD INSPECTOR by Tejas Garcia
--- NOTE | 2024-04-28 21:55 | P.DS ---
Admission Date: 03/22/24 Discharge Date: 04/28/24 Disposition: Discharge Condition: Reason for Admission: Unresponsiveness Brief History of Present Illness: 68-year-old female past medical history of alcoholic liver cirrhosis, recurrent ascites, status post ventral wall rupture due to indwelling ascites status post manage and underwent surgery at [facility] 6 months ago, subsequently had Pleurx drain placed yeah 4 months ago since then patient has not been seen any physician. She has previously been referred to liver transplant but stopped going since then. As per spouse she takes multivitamin Nepro as well as oxycodone at home. Since the last couple of days she has been having decreased p.o. intake and more progressively lethargic. She was brought in by the family today after being found unresponsive. Glucose was reportedly low at less than 20 by EMS. Patient was transferred to the hospital. On arrival in the ED patient continued to remain unresponsive despite IV dextrose that was given as well as glucagon. Patient received IV fluid boluses with improvement in blood pressure from 80s over 40s to initial 100 over 40s but then again trending down to 70s over 50s. He also received meropenem. Chest x-ray shows right pneumonia. CT of the chest and abdomen shows evidence of right lower lobe infiltrate with pleural effusion, possible PE as well in the lower abdomen, drainage catheter in the right lower quadrant, laboratory workup shows WBC of greater than 24,000, hemoglobin of 8.5, troponin elevated at 94, creatinine of 2.33, proBNP greater than 6000, ammonia markedly elevated at 144. Family requesting comfort care measures alone. They do not want any intervention anymore done. Patient still continues to be unresponsive Hospital Course: Patient was admitted admitted hospice. She was kept comfortable. She eventually at 7:10 AM the next morning. Vital Signs/Physical Exam: Temp Pulse Resp BP Pulse Ox 97.4 F 93 H 20 96/44 L 93 03/23/24 05:28 03/23/24 05:28 03/23/24 05:28 03/23/24 05:28 03/23/24 05:28 Laboratory Data at Discharge: WBC 30.70 thou/uL (4.3-10.9) H 03/23/24 06:00 Hgb 7.5 g/dL (12.0-15.0) L D 03/23/24 06:00 Hct 25.0 % (36.0-45.0) L 03/23/24 06:00 Plt Count 311 thou/uL (152-406) 03/23/24 06:00 PT 27.1 SECONDS (9.4-12.5) H 03/22/24 19:21 INR 2.48 03/22/24 19:21 Sodium 133 mEq/L (136-145) L 03/23/24 06:00 Potassium 5.3 mEq/L (3.5-5.1) H 03/23/24 06:00 BUN 29 mg/dL (7-18) H 03/23/24 06:00 Creatinine 2.69 mg/dL (0.55-1.02) H 03/23/24 06:00 Glucose 62 mg/dL (74-106) L 03/23/24 06:00 Magnesium 2.2 mg/dL (1.6-2.4) 03/22/24 19:21 Total Bilirubin 1.5 mg/dL (0.2-1.0) H 03/23/24 06:00 AST 559 U/L (15-37) H 03/23/24 06:00 ALT 98 U/L (13-56) H 03/23/24 06:00 Alkaline Phosphatase 104 U/L (45-117) 03/23/24 06:00 Lipase 14 U/L (13-75) 03/22/24 19:21 Home Medications: D3/Red Wine/Resveratrol/Malt [Super-D3+ Softgel] 1 each PO DAILY 11/23/23 Famotidine [Pepcid] 20 mg PO BID 11/23/23 Folic Acid/Vit B Complex and C [Nephro Vitamins Tablet] 1 tab PO DAILY 11/23/23 Thiamine Mononitrate (Vit B1) [Vitamin B1] 100 mg PO DAILY 11/23/23 Acetaminophen with Codeine [Acetaminophen-Cod #3 Tablet] 1 each PO Q6HR 03/23/24 Followup: Colby Kingston MD [Primary Care Provider] - Time spent managing pt's care (in minutes): 30
== END 2024-03-23 09:10 | disposition expired | DRG 432 ==
LOC: ER 18:55 → ERHOLD 22:36 → 2ND 23:21
PROVIDERS: ADMIT Internal Medicine; ATTEND Internal Medicine
DX: K70.31 Alcoholic cirrhosis of liver with ascites (principal); I21.4 Non-ST elevation (NSTEMI) myocardial infarction; J18.9 Pneumonia, unspecified organism; N17.9 Acute kidney failure, unspecified; E72.51 Non-ketotic hyperglycinemia; N39.0 Urinary tract infection, site not specified; F10.10 Alcohol abuse, uncomplicated; Z90.49 Acquired absence of other specified parts of digestive tract; Z90.710 Acquired absence of both cervix and uterus; K44.9 Diaphragmatic hernia without obstruction or gangrene; B96.20 Unspecified Escherichia coli [E. coli] as the cause of diseases classified elsewhere
CPT/HCPCS: 36415; 51702; 70450; 71045; 71250; 72125; 74018; 74176; 80048; 80053; 80076; 81001; 82140; 82947; 83605; 83690; 83735; 83880; 84484; 85025; 85610; 87040; 87077; 87086; 87088; 87186; 93005; 99285; J0696; J2185; J2470; J7030; J7050; J7121; P9047